=== PATIENT | female | born 1975 | race Hispanic/Latino ===

== ENCOUNTER 2021-01-20 12:26 | Emergency (ER) | payer OTHER, SELFPAY ==
[2021-01-20] VITALS (16 sets, daily range): BP systolic 109–138; BP diastolic 72–111; PULSE 80–112; RESP 18–35; TEMP 37.8; O2SAT 95–99
--- NOTE | ~2021-01-20 | XR_ITS ---
XR chest 1V portable DATE: 01/20/2021 13:20 INDICATION: Cough. TECHNIQUE: Portable AP chest on 01/20/2021 at 1322 hours COMPARISON: None FINDINGS: Normal heart size. No hilar or mediastinal enlargement. Minimal atelectasis at the lung bas es. The lungs otherwise appear clear. No pleural effusion or pulmonary vascular congestion or pneumot horax. Surgical clips, right upper quadrant, likely due to cholecystectomy. IMPRESSION: Minimal atelectasis at the lung bases Probable cholecystectomy Reviewed, dictated and finalized at location A.
[2021-01-20 12:42] LABS: Basophils Percent Auto 0.2 % (0.2-1.2); Hematocrit 41.8 % (37.0-47.0); Hemoglobin 14.3 g/dL (12.0-15.0); Immature Granulocyte Absolute 0.03 K/mm3 (0.00-0.031); Immature Granulocyte Percent A 0.5 % (0-0.5); Lymphocytes Absolute Auto 0.71 K/mm3 (0.9-3.2); Lymphocytes Percent Auto 12.5 % (18.3-44.2); Mean Corpuscular HGB Conc 34.2 g/dl (32-36); Mean Corpuscular Volume 93.5 fl (80-100); Mean Platelet Volume 9.1 fl (7.4-10.4); Monocytes Absolute Auto 0.5 K/mm3 (0.1-0.6); Monocytes Percent Auto 9.5 % (2.6-8.5); Neutrophils Absolute Auto 4.4 K/mm3 (1.3-6.7); Neutrophils Percent Auto 77.3 % (45.5-73.1); Platelet Count Result 207 k/mm3 (150-375); Red Blood Count 4.47 M/mm3 (4.2-5.4); Red Cell Distribution Width 12.6 % (11.5-14.5); White Blood Count 5.7 K/mm3 (4.5-10.0)
[2021-01-20 12:54] LABS: Alanine Aminotransferase 16 U/L (4-35); Albumin Level 4.3 g/dL (3.5-5.1); Alkaline Phosphatase 61 U/L (38-126); Anion Gap 9 mmol/L (8-16); Aspartate Amino Transferase 45 U/L (14-36); Bilirubin,Total 0.4 mg/dL (0.2-1.3); Blood Urea Nitrogen 8 mg/dL (7-17); Calcium 9.5 mg/dL (8.4-10.2); Carbon Dioxide 29 mmol/L (22-30); Chloride 101 mmol/L (98-107); Estimated CRCL calculation 69 ml/min; Estimated Glomerular Filt Rate > 60; Glucose 124 mg/dL (65-105); Lipase 125 U/L (23-300); Potassium 3.6 mmol/L (3.4-5.0); Sodium 139 mmol/L (137-145)
--- NOTE | 2021-01-20 12:55 | ECG_ITS ---
Measurements Intervals [place] Rate: 115 P: 32 HI: 154 QRS: 17 QRSD: 81 T: 30 QT: 333 QTc: 462 Interpretive Statements SINUS TACHYCARDIA INCOMPLETE RIGHT BUNDLE BRANCH BLOCK BORDERLINE ST-T WAVE ABNORMALITY- INF/LAT LEADS ABNORMAL ECG Electronically Signed On 01-20-2021 13:31:32 CDT by iBju Miles D.O.
[2021-01-20] MEDS: ONDANSETRON INJ 4 MG/2 ML VIAL IV PUSH (13:18)
[2021-01-20] MEDS: SODIUM CHLORIDE 0.9% IV 1,000 ML 999 ML IV CONT (13:18)
--- NOTE | 2021-01-20 13:43 | ED.GENADULT ---
HPI - General Adult General Chief complaint: Nausea/Vomiting/Diarrhea Stated complaint: N/V/D, COVID + 01/16 History of Present Illness HPI narrative: Patient is a 45-year-old female who presents ER with symptoms from COVID-19. Began feeling ill on 01/16/2021. She was tested on 01/17 and was positive for COVID-19. She has been having some runny nose and some cough. No shortness of breath. She has been having nausea and vomiting with diarrhea which has been the most severe parts of her symptoms. She has no medications to alleviate the symptoms again. She does have a spouse who is also ill with COVID-19. Related Data Allergies Allergy/AdvReac Type Severity Reaction Status Date / Time No Known Allergies Allergy Verified 01/20/21 12:29 Review of Systems Review of Systems: All systems reviewed & are unremarkable except as noted in HPI and below Constitutional: Constitutional: Denies chills, Reports fever(s) and Denies weakness ENT: Reports nasal congestion and Denies sore throat Cardiovascular: Cardiovascular: Denies chest pain and Denies radiating jaw, neck or arm pain Respiratory: Respiratory: Reports cough, Denies dyspnea and Denies wheezing Gastrointestinal: Gastrointestinal: Denies abdominal pain, Reports diarrhea, Reports nausea and Reports vomiting PMFSH Past Medical History Medical History (Updated 01/20/21 @ 15:26 by Manuel Linares MD) Healthy female adult Surgical History Surgical History (Updated 01/20/21 @ 13:54 by Manuel Linares MD) History of appendectomy History of cholecystectomy Social History Social History (Updated 01/20/21 @ 13:54 by Manuel Linraes MD) Smoking status: Never smoker Exam Narrative: Exam Narrative: GENERAL: Well-appearing, well-nourished, and in no acute distress. HEAD: Normocephalic, atraumatic. CHEST: Clear to auscultation. No respiratory distress. Frequent coughing. HEART: Regular rate and rhythm. Normal peripheral pulses. ABDOMEN: Soft, nontender, nondistended. EXTREMITIES: Normal range of motion. No edema. SKIN: Warm, dry, no rash. NEURO: Alert and oriented x3. PSYCH: Normal mood and affect. Course Course Emergency Course: Feels improved. Informed results. Discharge home. Vital Signs Vital signs: Vital Signs Temperature 100.0 F H 01/20/21 12:26 Pulse Rate 98 01/20/21 12:26 Respiratory Rate 22 H 01/20/21 12:26 Blood Pressure 131/88 01/20/21 12:26 Pulse Oximetry 95 01/20/21 12:26 Temperature 100.0 F H 01/20/21 12:26 Pulse Rate 104 H 01/20/21 14:16 Respiratory Rate 18 01/20/21 14:16 Blood Pressure 120/76 01/20/21 14:16 Pulse Oximetry 95 01/20/21 12:26 Medical Decision Making Vital Signs Vital Signs: Vital Signs Temperature 100.0 F H 01/20/21 12:26 Pulse Rate 98 01/20/21 12:26 Respiratory Rate 22 H 01/20/21 12:26 Blood Pressure 131/88 01/20/21 12:26 Pulse Oximetry 95 01/20/21 12:26 Temperature 100.0 F H 01/20/21 12:26 Pulse Rate 104 H 01/20/21 14:16 Respiratory Rate 18 01/20/21 14:16 Blood Pressure 120/76 01/20/21 14:16 Pulse Oximetry 95 01/20/21 12:26 Lab Data Result diagrams: 01/20/21 12:33 01/20/21 12:33 Labs: Lab Results 01/20/21 01/20/21 01/20/21 Range/Units 12:33 12:33 14:32 WBC 5.7 (4.5-10.0) K/mm3 RBC 4.47 (4.2-5.4) M/mm3 Hgb 14.3 (12.0-15.0) g/dL Hct 41.8 (37.0-47.0) % MCV 93.5 (80-100) fl MCH 32.0 (26-34) pg MCHC 34.2 (32-36) g/dl RDW 12.6 (11.5-14.5) % Plt Count 207 (150-375) k/mm3 MPV 9.1 (7.4-10.4) fl Immature Gran % (Auto) 0.5 (0-0.5) % Neut % (Auto) 77.3 H (45.5-73.1) % Lymph % (Auto) 12.5 L (18.3-44.2) % Oliver % (Auto) 9.5 H (2.6-8.5) % Eos % (Auto) 0.0 (0-4.4) % Baso % (Auto) 0.2 (0.2-1.2) % Lymph # (Auto) 0.71 L (0.9-3.2) K/mm3 Oliver # (Auto) 0.5 (0.1-0.6) K/mm3 Eos # (Auto) 0.0 (0-0.3) K/mm3 Baso # (Auto) 0.0
[2021-01-20 14:46] LABS: Add Urine Microscopic? YES; Appearance Urine Cloudy (Clear); Bacteria Urine Trace /hpf; Bilirubin Urine Negative (Negative); Blood Urine 3+ (Negative); Color Urine Yellow (Yellow); Glucose Urine UA Negative (Negative); Ketones Urine Trace mg/dL (Negative); Leukocyte Esterase Ur Negative LEU/UL (Negative); Mucus Urine Rare /lpf; Nitrate Urine Negative (Negative); Protein Urine 1+ mg/dL (Negative); RBC Urine >75 /hpf (0-2); Specific Grav Ur 1.017 (1.001-1.035); Squamous Epithelial Cell Urine Few /hpf (Few); Urobilinogen Urine Negative mg/dL (<2.0)
== END 2021-01-20 15:47 | disposition home or self-care (01) ==
PROVIDERS: Emergency Provider Emergency Medicine; PCP Family Medicine
DX: U07.1 COVID-19 (principal); R19.7 Diarrhea, unspecified
CPT/HCPCS: 36415; 71045; 80053; 81001; 81025; 83690; 85025; 87086; 93005; 96361; 96374; 99284; J2405; J7030

== ENCOUNTER 2021-01-25 21:08 | Inpatient (IN) | payer OTHER, SELFPAY ==
[2021-01-25] VITALS (11 sets, daily range): BP systolic 123–127; BP diastolic 75–81; PULSE 70–87; RESP 28–36; TEMP 37.1–37.5; O2SAT 97–100
--- NOTE | ~2021-01-25 | XR_ITS ---
EXAMINATION: XR chest 1V portable EXAM DATE: 01/31/2021 05:57 INDICATION: COVID . Shortness of breath. TECHNIQUE: Portable AP frontal chest x-ray was obtained. Comparison is made to prior examination from 01/26/2021. FINDINGS: Moderate amount of bilateral airspace disease involving all lobes. Compared to previous exa mination, there've been some small patchy regions of more confluent consolidation replacing the groun dglass opacity. Left midlung zone granuloma. No pneumothorax or pleural effusion. Cardiomediastinal s ilhouette is normal. There are no osseous abnormalities identified. There are cholecystectomy clips. IMPRESSION: Diffuse airspace disease consistent with COVID pneumonia. Reviewed, dictated and finalized at location A.
--- NOTE | ~2021-01-25 | XR_ITS ---
EXAMINATION: XR chest 1V portable INDICATION: Hypoxia, COVID positive TECHNIQUE: Portable AP chest at 2147 hours COMPARISON: 01/20/2021 FINDINGS: Patchy opacities have developed throughout all lung zones. There is no pleural effusion or pneumothorax. The cardiomediastinal silhouette is normal. The visualized osseous structures are unrem arkable. IMPRESSION: 1. Patchy opacities throughout all lung zones, consistent with COVID 19 pneumonia. Reviewed, dictated and finalized at location A. IMPRESSION: 1. Patchy opacities throughout all lung zones, consistent with COVID 19 pneumon ia.
--- NOTE | ~2021-01-25 | XR_ITS ---
EXAMINATION: XR chest 1V portable DATE: 01/26/2021 08:54 INDICATION: Shortness of breath. COVID-19 pneumonia. TECHNIQUE: A single frontal view of the chest was obtained. COMPARISON: Chest single view 01/25/2021, 01/20/2021 FINDINGS: The patient is rotated to her left. There are heterogeneous airspace opacities in all lung zones bilaterally. No pleural effusion or pneumothorax. The heart size is normal. Surgical clips in t he right upper quadrant are likely from cholecystectomy. IMPRESSION: 1. Stable diffuse lung disease, consistent with COVID-19 pneumonia. Reviewed, dictated and finalized at location A.
--- NOTE | ~2021-01-25 | CT_ITS ---
EXAMINATION: CTA chest PE protocol DATE: 01/26/2021 10:56 INDICATION: Hypoxia. TECHNIQUE: Computed tomography angiography (CTA) of the chest was performed with 100 mL Omnipaque-350 intravenous contrast timed to evaluate the pulmonary arteries. Coronal maximum intensity projection 3D-reconstructions were created by the technologist. Automated exposure control and iterative reconst ruction technique were employed. The dose-length product was 240.09 mGy-cm. COMPARISON: Chest single view 01/26/2021 FINDINGS: There are areas of groundglass opacity and crazy paving involving all lobes. There are airs pace opacities in the lower lobes and posterior aspects of the upper lobes. There is a trace left ple ural effusion. The heart size is normal. No pericardial effusion. There is no pulmonary embolus. Ther e are changes of cholecystectomy. There is mild thoracic spondylosis. IMPRESSION: 1. No pulmonary embolus. Sensitivity is mildly decreased by motion artifact. 2. Diffuse lung disease, consistent with COVID-19 pneumonia. Reviewed, dictated and finalized at location A.
--- NOTE | 2021-01-25 21:16 | ECG_ITS ---
Measurements Intervals [place] Rate: 84 P: 12 [place]: 144 QRS: 17 QRSD: 79 T: 0 QT: 377 QTc: 447 Interpretive Statements SINUS RHYTHM BORDERLINE T WAVE ABNORMALITY- INFERIOR LEADS BASELINE ARTIFACT- I, II, III, AVR, AVL, AVF, V1, V3-V6 BORDERLINE ECG Electronically Signed On 01-26-2021 7:13:55 CDT by Biju Miles D.O.
[2021-01-25 21:29] LABS: Alveolar/Arterial O2 Gradient 505.8 mmHg; Base Excess ABG 1.3 mEq/l (+/-2.0); Carboxyhemoglobin 0.2 % THb (0-2.0); Fractional Inspired Oxygen 90 %; Methemoglobin ABG 0.3 %THb (0-1.5); Oxygen Content ABG 17.3 %vol (16.0-22.0); Oxygen Saturation ABG 97.8 % (95.0-100.0); Oxyhemoglobin 96.5 % THb (90.0-100.0); PCO2 ABG 36.6 mmHg (35.0-45.0); PO2 ABG 98.4 mmHg (80.0-100.0); PO2 FiO2 Ratio Arterial Blood 1.09 %; Total Hemoglobin 12.7 g/dL (12.0-18.0); pH ABG 7.453 (7.350-7.450)
[2021-01-25 21:29] LABS: Basophils Percent Auto 0.2 % (0.2-1.2); Hematocrit 38.6 % (37.0-47.0); Hemoglobin 12.9 g/dL (12.0-15.0); Immature Granulocyte Absolute 0.08 K/mm3 (0.00-0.031); Immature Granulocyte Percent A 0.9 % (0-0.5); Lymphocytes Absolute Auto 0.69 K/mm3 (0.9-3.2); Lymphocytes Percent Auto 7.5 % (18.3-44.2); Mean Corpuscular HGB Conc 33.4 g/dl (32-36); Mean Corpuscular Hemoglobin 31.5 pg (26-34); Mean Corpuscular Volume 94.1 fl (80-100); Mean Platelet Volume 9.1 fl (7.4-10.4); Monocytes Absolute Auto 0.4 K/mm3 (0.1-0.6); Monocytes Percent Auto 4.3 % (2.6-8.5); Neutrophils Percent Auto 87.1 % (45.5-73.1); Platelet Count Result 432 k/mm3 (150-375); Red Cell Distribution Width 12.8 % (11.5-14.5); White Blood Count 9.2 K/mm3 (4.5-10.0)
[2021-01-25 21:30] LABS: Device NON-REBREATHER MASK; Modified Allen's Test Pass; Site Drawn LEFT RADIAL
[2021-01-25 21:40] LABS: INR 0.9; Prothrombin Time 12.2 Seconds (11.1-14.7)
[2021-01-25 21:41] LABS: Lactic Acid Reflex 1.9 mmol/L (0.7-2.1); Partial Thromboplastin Time 28.1 SECONDS (22.3-36.8)
[2021-01-25 21:44] LABS: Alanine Aminotransferase 30 U/L (4-35); Albumin Level 3.7 g/dL (3.5-5.1); Alkaline Phosphatase 98 U/L (38-126); Anion Gap 6 mmol/L (8-16); Aspartate Amino Transferase 66 U/L (14-36); Bilirubin,Total 0.4 mg/dL (0.2-1.3); Blood Urea Nitrogen 19 mg/dL (7-17); CRP 7.8 mg/dL (<1.0); Calcium 8.4 mg/dL (8.4-10.2); Carbon Dioxide 30 mmol/L (22-30); Chloride 106 mmol/L (98-107); Estimated CRCL calculation 98 ml/min; Estimated Glomerular Filt Rate > 60; Glucose 132 mg/dL (65-105); Potassium 3.6 mmol/L (3.4-5.0); Sodium 142 mmol/L (137-145)
[2021-01-25] MEDS: DEXAMETHASONE SOD PHOS INJ 4 MG/ML VIAL 6 MG IV PUSH (22:12)
--- NOTE | 2021-01-25 22:31 | ED.SOB ---
HPI - SOB/Dyspnea General Chief Complaint: Shortness of Breath/Dyspnea Stated Complaint: SOB Time Seen by Provider: 01/25/21 21:37 History of Present Illness HPI Narrative: Patient is a 45-year-old female who presents ER with shortness of breath. [place] symptomatic with Covid on 01/16/2021 and tested positive a day later. She was seen in the ER last week with negative chest x-ray and no hypoxia. She has been at home and then became very short of breath yesterday. Persisted throughout the day and she decided to come to the ER. She continues to have fevers and chills. She has fatigue and exertional shortness of breath. Patient was found to be 66% on room air and is now on 5 L of nasal cannula oxygen. She is having no chest pain or chest pressure. Reports she feels like she can only get 1/2 breath and then starts to cough. Related Data Home Medications Medication Instructions Recorded Confirmed albuterol sulfate INHALATION 01/26/21 benzonatate mg PO 01/26/21 ondansetron 01/26/21 Allergies Allergy/AdvReac Type Severity Reaction Status Date / Time No Known Allergies Allergy Verified 01/25/21 21:17 Review of Systems Review of Systems: All systems reviewed & are unremarkable except as noted in HPI and below Constitutional: Constitutional: Reports chills, Reports fever(s) and Reports weakness ENT: Denies nasal congestion and Denies sore throat Cardiovascular: Cardiovascular: Denies chest pain, Denies rapid heart rate and Denies radiating jaw, neck or arm pain Respiratory: Respiratory: Reports cough, Reports dyspnea and Denies wheezing Gastrointestinal: Gastrointestinal: Denies abdominal pain, Denies nausea and Denies vomiting [facility], [facility] Past Medical History Medical History (Updated 01/26/21 @ 05:18 by Manuel Linares MD) Healthy female adult Surgical History Surgical History History of appendectomy History of cholecystectomy Family History Family History (Updated 01/26/21 @ 04:46 by Fabiana Funes DO) Father Lung cancer Continuous tobacco abuse Mother Diabetes mellitus Hypertension Social History Social History Smoking status: Never smoker Alcohol intake: current Drinks per week: 1 Substance use: never Substance use type: does not use Gender identity (if verbalized by the patient): Female Spiritual care concerns: No Exam Narrative: Exam Narrative: GENERAL: Fatigued-appearing, well-nourished, and in no acute distress. HEAD: Normocephalic, atraumatic. Neck: Trachea midline CHEST: Clear to auscultation. Tachypnea, no stridor.. HEART: Regular rate and rhythm. Normal peripheral pulses. EXTREMITIES: Normal range of motion. No edema. SKIN: Warm, dry, no rash. NEURO: No focal deficits. Alert and oriented x3. PSYCH: Normal mood and affect. Course Course Emergency Course: Admit to hospitalist service for significant oxygen requirement related to Covid pneumonia. Patient will be started on remdesivir. Patient is also received Decadron. Vital Signs Vital signs: Vital Signs Temperature 99.5 F 01/25/21 21:12 Pulse Rate 83 01/25/21 21:12 Respiratory Rate 32 H 01/25/21 21:12 Blood Pressure 127/75 01/25/21 21:12 Pulse Oximetry 97 01/25/21 21:12 Temperature 98.1 F 01/26/21 00:10 Pulse Rate 79 01/26/21 00:10 Respiratory Rate 22 H 01/26/21 00:10 Blood Pressure 120/64 01/26/21 00:10 Pulse Oximetry 90 01/26/21 00:10 MDM - SOB/Dyspnea Lab Data Result diagrams: 01/25/21 21:19 01/25/21 23:39 Labs: Lab Results 01/25/21 01/25/21 01/25/21 Range/Units 21:19 21:19 21:19 WBC 9.2 (4.5-10.0) K/mm3 RBC 4.10 L (4.2-5.4) M/mm3 Hgb 12.9 (12.0-15.0) g/dL Hct 38.6 (37.0-47.0) % MCV 94.1 (80-100) fl MCH 31.5 (26-34) pg MCHC 33.4 (32-36) g/dl RDW 12.8 (11.5-14.5)
[2021-01-26] VITALS (21 sets, daily range): BP systolic 108–122; BP diastolic 64–75; PULSE 57–79; RESP 16–32; TEMP 36.1–36.8; O2SAT 80–100; BMI 24.0
[2021-01-26 00:01] LABS: Alanine Aminotransferase 28 U/L (4-35); Estimated CRCL calculation 115 ml/min; Estimated Glomerular Filt Rate > 60
[2021-01-26] MEDS: REMDESIVIR 200 MG/NS 250 ML 200 MG/250 ML BAG 250 MG IVPB (00:27)
--- NOTE | 2021-01-26 02:55 | PM.IMHP ---
H&P: HPI History of Present Illness Date/Time: 01/26/21 02:55 Chief Complaint: Shortness of breath Narrative: 45-year-old female previously healthy except for recent diagnosis of COVID-19 who presented to the ER via EMS with shortness of breath and hypoxia.The patient reported that she developed rhinorrhea and cough on the . She was tested the next day when she developed chills and was found to be positive for COVID-19. On 01/20/2021 she presented to our ER due to weakness, nausea, vomiting and diarrhea. She had a chest x-ray at that time that was normal. She reported that her GI symptoms lasted for 2 or 3 days then resolved. Then on the morning of the she began feeling short of breath. Then today she reported that if she exerted herself at all she became lightheaded and had to collapse into a chair. On EMS arrival the patient's home the patient was found to be satting 66% on room air. She arrived to the ER on 5 L nasal cannula satting 96%. The patient reports that she feels as if she cannot get a deep breath. She denies any chest pain, palpitations, lower extremity swelling, or orthopnea. She reports that she currently feels hot and sweaty. She has noticed decreased sense of smell over the last couple of days. She denies loss of sense of taste. She works at the [employer]. She reports that her has also been ill with COVID symptoms. The patient received prescriptions for albuterol and benzoate from her primary care provider these medications did not seem to improve her symptoms. She received Zofran from the ER but has not had to use it in several days. She has been afebrile since arrival. Initially in the ER the patient was on 5 L nasal cannula. Evidently before she left the ER she was requiring up to 10 L nasal cannula and a non-rebreather. After arriving to the medical floor the patient is having persistent hypoxia with sats in the mid 80s. She briefly had be placed on 15 L high-flow and a non-rebreather. After 20 or 30 minutes the patient was weaned back down to 7 L high-flow. The patient reports that she feels much better currently. Review of Systems Review of Systems: Narrative: 12 systems were reviewed with pertinent positives and negatives per HPI. Except as documented in the HPI, all other systems were reviewed and are negative. [facility] Past Medical History Medical History (Updated 01/26/21 @ 05:03 by Fabiana Funes DO) Healthy female adult Surgical History Surgical History History of appendectomy History of cholecystectomy Family History Family History (Updated 01/26/21 @ 04:46 by Fabiana Funes DO) Father Lung cancer Continuous tobacco abuse Mother Diabetes mellitus Hypertension Social History Social History Smoking status: Never smoker Alcohol intake: current Drinks per week: 1 Substance use: never Substance use type: does not use Gender identity (if verbalized by the patient): Female Spiritual care concerns: No Comments She lives with her of 14 years. They do not have any children. She [place] the [place] from [place] [facility] 5 years ago. She works at [employer]. She drinks 1 beer a week on average. She is a lifelong nonsmoker and does not use illicit substances. Meds Home Medications and Allergies Home Medications Medication Instructions Recorded Confirmed Type albuterol sulfate INHALATION 01/26/21 History benzonatate mg PO 01/26/21 History ondansetron 01/26/21 History Allergies Allergy/AdvReac Type Severity Reaction Status Date / Time No Known Allergies Allergy Verified 01/25/21 21:17 Vital Signs Vital Signs - 24 hr 01/25/21 21:12 01/25/21 21:18 01/25/21 21:30 Temperature 99.5 F Pulse Rate 83 84 79 Respiratory Rate 32 H 28 H 29 H Blood Pressure 127/75 Pulse
[2021-01-26 06:14] LABS: Alanine Aminotransferase 25 U/L (4-35); Albumin Level 3.5 g/dL (3.5-5.1); Alkaline Phosphatase 89 U/L (38-126); Anion Gap 5 mmol/L (8-16); Aspartate Amino Transferase 49 U/L (14-36); Bilirubin,Total 0.4 mg/dL (0.2-1.3); Blood Urea Nitrogen 20 mg/dL (7-17); CRP 6.5 mg/dL (<1.0); Calcium 8.6 mg/dL (8.4-10.2); Carbon Dioxide 31 mmol/L (22-30); Chloride 107 mmol/L (98-107); Estimated CRCL calculation 80 ml/min; Estimated Glomerular Filt Rate > 60; Glucose 171 mg/dL (65-105); Lactate Dehydrogenase 991 U/L (313-618); Potassium 3.6 mmol/L (3.4-5.0); Sodium 143 mmol/L (137-145)
[2021-01-26 06:18] LABS: Hematocrit 35.6 % (37.0-47.0); Mean Corpuscular HGB Conc 33.7 g/dl (32-36); Mean Corpuscular Hemoglobin 31.6 pg (26-34); Mean Corpuscular Volume 93.7 fl (80-100); Mean Platelet Volume 9.1 fl (7.4-10.4); Platelet Count Result 439 k/mm3 (150-375); Red Cell Distribution Width 12.7 % (11.5-14.5); White Blood Count 6.5 K/mm3 (4.5-10.0)
[2021-01-26 07:02] LABS: Vitamin D 25 Hydroxy 23.6 ng/mL
--- NOTE | 2021-01-26 07:56 | ADMGEN ---
This patient, Aishwarya Banks, was admitted to 3 [facility] Surg Room 331-01. Patient/family oriented to hospital policies and general routines including ID bracelet, bed and alarms, visiting hours, pain management, procedures, bathroom and other care routines, personal items, smoking policy, room service/diet, and visiting hours. Information on how to activate the Rapid Response Team has been discussed. Patient/Family are encouraged to report perceived risks to care and to ask questions if they do not understand what they are told or what they should do. Patient had respiratory distress when she arrived with rapid breathing and SpO2 in the 80's until a nonrebreather was placed per RT recommendation. She continued to desat during times of activity though she maintained an SpO2 of 96% on 5 lpm while sleeping. 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
[2021-01-26] MEDS: ALBUTEROL SULFATE (*SP) INHALER 4 PUFF INHALATION ×4 (08:00→20:05)
[2021-01-26] MEDS: ENOXAPARIN 40 MG/0.4 ML SYRINGE SUB-Q ×2 (08:09→20:18)
[2021-01-26] MEDS: DEXAMETHASONE SOD PHOS INJ 4 MG/ML VIAL 6 MG IV PUSH (08:09)
--- NOTE | 2021-01-26 08:39 | PM.IMPN ---
Progress Note: A&P Assessment and Plan (1) Acute respiratory failure with hypoxia: Code(s): J96.01 - Acute respiratory failure with hypoxia Status: Acute (2) Pneumonia due to COVID-19 virus: Code(s): U07.1 - COVID-19; J12.82 - Pneumonia due to coronavirus disease 2019 Status: Acute (3) COVID-19: Code(s): U07.1 - COVID-19 Status: Acute (4) Elevated d-dimer: Code(s): R79.89 - Other specified abnormal findings of blood chemistry Status: Acute Additional Plan # Acute hypoxic respiratory failrue: due to covid pneumonia. oxygen supplementation. currently at 15 l. titrate as needed. may need BIPAP.albuterol inhaler prn. elevated d dimer. check CTA chest. # COVID 19 pneumonia: check procalcitonin level. if elevated, may put some antibitocs. started on decadron and remdesivir # DVT proph: lovenox 40 mg q12hrs. transfer pateint to IMU. still signififcantely hypoxic, start airvo. if not maintained will place on BIPAP Subjective Date/time seen: 01/26/21 08:39 Interval history: she coughed this am and she started desaturating, she is up to 15l. she has ongoing cough. no fever, no chills. she denies any chest pain. Review of Systems Review of Systems: Narrative: - CONSTITUTIONAL: Denies weight loss, reports fever and chills. - HEENT: Denies changes in vision and hearing - RESPIRATORY: reports SOB and cough. - CV: Denies palpitations and CP. - GI: Denies abdominal pain, nausea, vomiting and diarrhea. - : Denies dysuria and urinary frequency. - MSK: Denies myalgia and joint pain. - SKIN: Denies rash and pruritus. - NEUROLOGICAL: Denies headache and syncope. - PSYCHIATRIC: Denies recent changes in mood. Denies anxiety and depression. All systems reviewed & are unremarkable except as noted in HPI and below Constitutional: Constitutional: Reports fatigue and Reports weakness Neurologic: Reports weakness Endocrine: Endocrine: Reports fatigue Exam Narrative: Exam Narrative: General: Moderately ill-appearing, well-developed well-nourished HEENT: Mucous membranes are dry, no oral pharyngeal erythema, pupils are equal and reactive, eye glasses in place, high-flow nasal cannula in nares Respiratory: Crackles at the bases bilaterally, tachypneic, no accessory muscle use Cardiovascular: Regular rate, regular rhythm, no murmurs, 2+ bilateral radial pedal pulses Gastrointestinal: Soft, nontender, nondistended, positive bowel sounds Skin: No jaundice, no pallor Musculoskeletal: No clubbing, cyanosis or edema Neurological: Alert and oriented, speech is clear, no facial asymmetry, no gross motor deficits noted on limited exam Psychiatric: Appropriate mood and affect, pleasant and cooperative : Deferred Hematologic/lymphatic: No petechiae, bruising or significant lymphadenopathy Objective Data Vital Signs Vital Signs: Vital Signs - 24 hr 01/25/21 21:12 01/25/21 21:18 01/25/21 21:30 Temperature 99.5 F Pulse Rate 83 84 79 Respiratory Rate 32 H 28 H 29 H Blood Pressure 127/75 Pulse Oximetry 97 01/25/21 21:45 01/25/21 22:00 01/25/21 22:15 Temperature Pulse Rate 78 85 84 Respiratory Rate 28 H 36 H 32 H Blood Pressure Pulse Oximetry 01/25/21 22:35 01/25/21 23:23 01/25/21 23:34 Temperature 98.8 F Pulse Rate 76 87 70 Respiratory Rate 32 H 30 H Blood Pressure 124/75 Pulse Oximetry 98 100 01/25/21 23:45 01/25/21 23:46 01/26/21 00:00 Temperature Pulse Rate 77 79 72 Respiratory Rate 35 H 35 H Blood Pressure 123/81 Pulse Oximetry 01/26/21 00:10 01/26/21 04:00 01/26/21 08:00 Temperature 98.1 F 98 F Pulse Rate 79 78 70 Respiratory Rate 22 H 20 18 Blood Pressure 120/64 114/67 115/72 Pulse Oximetry 90 95 96 01/26/21 08:05 01/26/21 08:07 01/26/21 08:12 Temperature Pulse Rate Respiratory Rate Blood Pressure Pulse Oximetry 85 L 86 L 94 01/26/21 08:19 Temperature Pulse Rate Respiratory Rate
[2021-01-26 08:51] LABS: Alveolar/Arterial O2 Gradient 599.3 mmHg; Carboxyhemoglobin 0.3 % THb (0-2.0); Device HIGH FLOW NASAL CANN; Fractional Inspired Oxygen 100 %; HCO3 ABG 26.1 mEq/l (22.0-26.0); Methemoglobin ABG 0.3 %THb (0-1.5); Modified Allen's Test Pass; Oxygen Content ABG 19.7 %vol (16.0-22.0); Oxygen Saturation ABG 95.5 % (95.0-100.0); Oxyhemoglobin 93.8 % THb (90.0-100.0); PCO2 ABG 39.2 mmHg (35.0-45.0); PO2 ABG 74.5 mmHg (80.0-100.0); PO2 FiO2 Ratio Arterial Blood 0.75 %; Reduced Hemoglobin 5.6 %THb (0-5.0); Site Drawn RIGHT RADIAL; Total Hemoglobin 14.9 g/dL (12.0-18.0); pH ABG 7.441 (7.350-7.450)
--- NOTE | 2021-01-26 10:36 | PC.NURSE ---
Patient to cat scan per bed. Report called to IMU nurse Danelle. Patient to be transported to room 212 after cat scan.
[2021-01-26] MEDS: guaiFENesin/DEXTROMETHORPHAN 10 ML UDC PO ×2 (12:03→22:23)
--- NOTE | 2021-01-26 12:11 | PC.NURSE ---
This patient, Aishwarya Banks, was received from [ [phone]] on 01/26/21 at 1105. Recvd report from Tashia. Patient/family oriented to unit policies and routines
--- NOTE | 2021-01-26 16:03 | PM.CNPUL ---
Assessment and Plan Assessment and plan (1) Pneumonia due to COVID-19 virus: Code(s): U07.1 - COVID-19; J12.82 - Pneumonia due to coronavirus disease 2019 Status: Acute Assessment and Plan: Patient with COVID pneumonia and hypoxemic respiratory failure requiring 13 L high-flow nasal cannula at this time. Patient was started on dexamethasone 6 mg IV Q day on 01/25 at 10:00 p.m. and Remdesivir 200 on 01/26 at 12:27 a.m. I am in agreement with this treatment and will continue at a minimum of 5 days. will reassess the patient at D5 to see if she would benefit from an additional 5 days. I have discussed convalescent plasma with the patient and she has agreed with this recommendation. I have ordered the convalescent plasma. I have initiated ceftriaxone and azithromycin for possible community-acquired pneumonia and will follow blood cultures and deescalate if cultures remain negative. I have recommended that patient perform prone positioning if possible. If patient has additional desaturations on high-flow nasal cannula would proceed to high-flow air bow treatment with 60 L and up to 100%. If this does not keep her saturations above 90% recommend BiPAP. Patient was previously healthy without any comorbidities and I am hoping the above treatments will prevent further deterioration. Should the patient deteriorate she does wish to be a full code. Will follow with you. (2) Acute respiratory failure with hypoxia: Code(s): J96.01 - Acute respiratory failure with hypoxia Status: Acute Assessment and Plan: Patient with acute respiratory failure with hypoxemia from COVID pneumonia. She has a CT angiogram of the chest which is negative for pulmonary embolism. As above she is treated for community-acquired pneumonia. I have been ordered an echocardiogram to assess LV function and valve function. 01/25 arrival on 5 L with sats 96% 01/25 in ED 21:00 on 100% NRB 7.45/37/98 01/25 21:00 5 L NC 01/26 08:00 15 L high flow NC 7.44/39/75 01/26 16:00 13 L high flow NC. Sats 92% History of Present Illness History of Present Illness Consult date: 01/26/21 Reason for consult: hypoxemia Chief complaint: covid pneumonia, hypoxia Narrative: this is a new consult for COVID pneumonia with hypoxemic respiratory failure. This is a 45-year-old Female with no known past medical history and not taking any medications. Patient had no respiratory limitations in her life and walks at least 4 miles a day at work and jogs with intermittent walking 2 miles in 30 minutes. Patient developed rhinorrhea, cough and chills and tested positive for COVID on 331 at a [employer]. I do not have those results. She then developed weakness, nausea, vomiting and diarrhea and presented to the ER on 01/20. Chest x-ray at that time demonstrated minimal atelectasis at the bases but was otherwise normal. On 01/24 patient developed worsening shortness of breath and on for 8 EMS was called and her sats were 66% on room air. Patient was brought to the emergency department and initially required 10 L nasal cannula oxygen. Patient had a white blood cell count of 9.2K and an ABG on 15 L nasal cannula oxygen demonstrated a pH of 7.45/37/98. Patient was Admitted to the floor and started on room de severe and dexamethasone. On the floor patient had desaturations and required 15 L high-flow nasal cannula and 100% non-rebreather and was transferred to IMU. patient had a D-dimer of 0.70 which was positive and had a CT angiogram of the chest that showed no pulmonary emboli but diffuse bilateral ground-glass opacities consistent with COVID pneumonia. In the IMU patient was weaned to 15 L high flow with saturations 94%. I was consulted. 01/26 Patient tells me she feels better than she felt yesterday which was her worst day. Patient does still complain that she has some chest tightness and that deep breathing causes her to cough. She has no phlegm and denies h
[2021-01-26] MEDS: REMDESIVIR 100 MG/NS 250 ML 100 MG/250 ML BAG 250 MG IVPB (23:41)
[2021-01-27] VITALS (20 sets, daily range): BP systolic 104–127; BP diastolic 61–79; PULSE 50–77; RESP 18–28; TEMP 36.3–36.9; O2SAT 90–100
--- NOTE | 2021-01-27 | ECHO_ITS ---
Patient Info Name: Aishwarya Banks Age: 45 years : 1975 Gender: Female Ht: 62 in Wt: 131 lbs BSA: 1.62 m2 HR: 55 bpm BP: 115 / 79 mmHg Heart Rhythm: Sinus Rhythm Technical Quality: Good Exam Date: 01/27/2021 2:01 PM Exam Location: [facility] Pulmonary Exam Room: [facility] Patient Status: Inpatient Admit Date: 01/25/2021 Staff Ordering Physician: Franky Hammond MD Consumer Recruiter: Kayli Campos RDCS Attending Provider: Fabiana Funes DO Referring Physician: Manish DELA CRUZ; Exam Type: CA echo doppler color flow Study Info Indications - covid pneumonia hypoxia Complete two-dimensional, color flow and Doppler transthoracic echocardiogram is performed. Summary 1. Complete two-dimensional, color flow and Doppler transthoracic echocardiogram is performed. 2. Left ventricular systolic function is normal, estimated at 65-70%. 3. There is no increased left ventricular wall thickness. 4. The left ventricular diastolic function is normal. 5. Right atrial chamber dimension is mildly enlarged. 6. There is no aortic valve stenosis. 7. There is mild mitral valve regurgitation. 8. There is mild tricuspid valve regurgitation. 9. No pulmonary hypertension, estimated pulmonary arterial systolic pressure is 30 mmHg. Left Ventricle Left ventricular chamber dimension is normal. Left ventricular systolic function is normal, estimated at 65-70%. There is no increased left ventricular wall thickness. The left ventricular diastolic function is normal. Right Ventricle Right ventricular chamber dimension is normal. Right ventricular systolic function is normal. Left Atria Left atrial chamber dimension is normal. Right Atria Right atrial chamber dimension is mildly enlarged. Aortic Valve The aortic valve is not well visualized. There is no aortic valve stenosis. There is no aortic valve regurgitation. Pulmonic Valve The pulmonic valve is normal. There is mild pulmonic regurgitation. Mitral Valve The mitral valve has normal leaflets. There is mild mitral valve regurgitation. Tricuspid Valve The tricuspid valve leaflets are normal. There is mild tricuspid valve regurgitation. No pulmonary hypertension, estimated pulmonary arterial systolic pressure is 30 mmHg. Pericardium/Pleural The pericardium appears normal. There is no pericardial effusion. Inferior Vena Cava Normal inferior vena cava with >50% collapse upon inspiration consistent with normal right atrial pressure, 5 mmHg. Aorta The aortic root size at the sinus of Valsalva is normal. Left Ventricular Outflow Tract Name Value Normal LVOT 2D LVOT Diameter 2.0 cm LVOT Doppler LVOT Peak Velocity 92 cm/s LVOT Peak Gradient 3 mmHg LVOT Mean Gradient 2 mmHg LVOT VTI 22 cm LVOT VTI/AV VTI Ratio 0.8 LVOT Stroke Volume 71 ml LVOT CO 12.8 l/min LVOT CI 7.9 l/min/m2 Pulmonic Valv
[2021-01-27] MEDS: ONDANSETRON INJ 4 MG/2 ML VIAL IV PUSH (04:17)
[2021-01-27 05:19] LABS: Alanine Aminotransferase 19 U/L (4-35); Estimated CRCL calculation 114 ml/min; Estimated Glomerular Filt Rate > 60
[2021-01-27] MEDS: guaiFENesin/DEXTROMETHORPHAN 10 ML UDC PO ×2 (08:39→21:20)
[2021-01-27] MEDS: ACETAMINOPHEN 325 MG TABLET 650 MG PO (08:39)
[2021-01-27] MEDS: DEXAMETHASONE SOD PHOS INJ 4 MG/ML VIAL 6 MG IV PUSH (08:40)
[2021-01-27] MEDS: ENOXAPARIN 40 MG/0.4 ML SYRINGE SUB-Q ×2 (08:40→19:57)
[2021-01-27] MEDS: ALBUTEROL SULFATE (*SP) INHALER 4 PUFF INHALATION ×4 (08:40→19:56)
--- NOTE | 2021-01-27 12:06 | PM.IMPN ---
Progress Note: A&P Additional Plan # Acute hypoxic respiratory failrue: due to covid pneumonia. oxygen supplementation. currently at 15 l. titrate as needed. may need BIPAP.albuterol inhaler prn. elevated d dimer. CTA chest negative for PE. on empiric antiboics for bacterial pneuonia. appreiacte pulmnonary recs. # COVID 19 pneumonia: check procalcitonin level ordered but still not back yet. i am not sure why. if elevated, may put some antibitocs. however pulmoanry has placed on antibtioics. her sputum cutlure with mixed bacterial bea. cotninue antibioics. started on decadron and remdesivir.r eceived convalescent plasma as well. # DVT proph: lovenox 40 mg q12hrs. contineu current care. Subjective Date/time seen: 01/27/21 12:06 Interval history: feeling a little better today.s he recieved convalescent plasma yesterday. she is able to eat, less nauseous. no fever, chills. Review of Systems Review of Systems: All systems reviewed & are unremarkable except as noted in HPI and below Constitutional: Constitutional: Reports fatigue and Reports weakness Neurologic: Reports weakness Endocrine: Endocrine: Reports fatigue Exam Narrative: Exam Narrative: General: Moderately ill-appearing, well-developed well-nourished HEENT: Mucous membranes are dry, no oral pharyngeal erythema, pupils are equal and reactive, eye glasses in place, high-flow nasal cannula in nares Respiratory: Crackles at the bases bilaterally, tachypneic, no accessory muscle use Cardiovascular: Regular rate, regular rhythm, no murmurs, 2+ bilateral radial pedal pulses Gastrointestinal: Soft, nontender, nondistended, positive bowel sounds Skin: No jaundice, no pallor Musculoskeletal: No clubbing, cyanosis or edema Neurological: Alert and oriented, speech is clear, no facial asymmetry, no gross motor deficits noted on limited exam Psychiatric: Appropriate mood and affect, pleasant and cooperative : Deferred Hematologic/lymphatic: No petechiae, bruising or significant lymphadenopathy Objective Data Vital Signs Vital Signs: Vital Signs - 24 hr 01/26/21 14:00 01/26/21 16:00 01/26/21 16:30 Temperature 97.2 F L Pulse Rate 58 L 61 58 L Respiratory Rate 24 H Blood Pressure 121/72 Pulse Oximetry 98 01/26/21 18:00 01/26/21 20:00 01/26/21 21:19 Temperature 96.9 F L 98.2 F Pulse Rate 67 67 69 Respiratory Rate 16 24 H Blood Pressure 114/64 108/70 Pulse Oximetry 98 99 01/26/21 21:40 01/26/21 21:44 01/26/21 22:00 Temperature 97.4 F L Pulse Rate 60 64 Respiratory Rate 28 H Blood Pressure 115/75 Pulse Oximetry 98 99 01/26/21 22:44 01/26/21 23:35 01/27/21 00:00 Temperature 97.6 F 98 F 98 F Pulse Rate 57 L 73 53 L Respiratory Rate 18 24 H 24 H Blood Pressure 117/70 122/70 122/70 Pulse Oximetry 97 99 100 01/27/21 00:55 01/27/21 02:00 01/27/21 03:16 Temperature Pulse Rate 54 L Respiratory Rate Blood Pressure Pulse Oximetry 100 99 01/27/21 03:32 01/27/21 04:00 01/27/21 04:01 Temperature 97.5 F L Pulse Rate 77 69 Respiratory Rate 20 Blood Pressure 115/79 Pulse Oximetry 98 90 01/27/21 05:25 01/27/21 05:56 01/27/21 08:00 Temperature 97.4 F L Pulse Rate 55 L 58 L Respiratory Rate 26 H Blood Pressure 110/63 Pulse Oximetry 100 97 01/27/21 08:21 01/27/21 09:57 01/27/21 11:54 Temperature Pulse Rate 54 L Respiratory Rate Blood Pressure Pulse Oximetry 96 96 Intake/Output Intake/Output: Intake & Output 01/24/21 01/25/21 01/26/21 01/27/21 23:59 23:59 23:59 23:59 Intake Total 2269 712 Output Total 700 325 Balance 1569 387 Meds/Results Medications: Active Medications Generic Name Dose Route Start Last Admin Trade Name Freq PRN Reason Stop Dose Admin Acetaminophen 650 mg 01/25/21 23:20 01/27/21 08:39 Acetaminophen 325 Mg Tablet PO 650 mg Q4H PRN Administration Mild Pain (1-3) or Fever Albuterol 4 puff 01/26/21 08:00 01/27
[2021-01-27] MEDS: REMDESIVIR 100 MG/NS 250 ML 100 MG/250 ML BAG 250 MG IVPB (21:15)
--- NOTE | 2021-01-27 22:00 | PM.PNPUL ---
Progress Note: A&P Assessment and Plan (1) Pneumonia due to COVID-19 virus: Code(s): U07.1 - COVID-19; J12.82 - Pneumonia due to coronavirus disease 2019 Status: Acute Assessment and Plan: Patient with COVID pneumonia and hypoxemic respiratory failure now decreased at 8 L/min Still taking a while to recover after exertion continues on dexamethasone 6 mg IV Q day since 01/25 at 10:00 p.m. and Remdesivir 200 on 01/26 at 12:27 a.m. continue a minimum of 5 days; will reassess the patient at D5 to see if she would benefit from an additional 5 days. convalescent plasma with the patient and she has agreed with this recommendation. ceftriaxone and azithromycin for possible community-acquired pneumonia I have recommended that patient perform prone positioning if possible. If patient has additional desaturations on high-flow nasal cannula would proceed to high-flow air vo treatment with 60 L and up to 100%. If this does not keep her saturations above 90% recommend BiPAP. Patient was previously healthy without any comorbidities; she is a full code; Will follow with you. (2) Acute respiratory failure with hypoxia: Code(s): J96.01 - Acute respiratory failure with hypoxia Status: Acute Assessment and Plan: Patient with acute respiratory failure with hypoxemia from COVID pneumonia. She has a CT angiogram of the chest which is negative for pulmonary embolism. As above she is treated for community-acquired pneumonia. I have been ordered an echocardiogram to assess LV function and valve function. 01/25 arrival on 5 L with sats 96% 01/25 in ED 21:00 on 100% NRB 7.45/37/98 01/25 21:00 5 L NC 01/26 08:00 15 L high flow NC 7.44/39/75 01/26 16:00 13 L high flow NC. Sats 92% 01/27 21:00 8 L/min saturation 90% Subjective Date/time seen: 01/27/21 21:30 This is a 45-year-old female female with no known past medical history is seen in f/u for COVID , received convalescent plasma 01/26/2021. Her O2 need is lower, 8 L/min down from 15 L/min high flow & 15 nonbreather. She is coughing with no significant sputum. January 17- positive for COVID at a [facility]. --> weakness, nausea, vomiting and diarrhea ER on 01/20. Chest x-ray at that time demonstrated minimal atelectasis at the bases but was otherwise normal. 01/24 more shortness of breath; 01/25 EMS was called, sats were 66% on room air. This was her worst day. Required 10 L nasal cannula oxygen. WBC 9.2K; ABG on 15 L nasal cannula oxygen = pH of 7.45/37/98. Admitted to the floor and started on Remdesivir and dexamethasone. Desaturations and required 15 L high-flow nasal cannula and 100% non-rebreather and was transferred to IMU. D-dimer 0.70 which was positive and had a CT angiogram of the chest that showed no pulmonary emboli; diffuse bilateral ground-glass opacities consistent with COVID pneumonia. In the IMU patient was weaned to 15 L high flow with saturations 94%, now improved after convalescent plasma yesterday Still has chest tightness with discomfort taking a deep breath. no sputum, no hemoptysis; no chest pain, abdominal pain, joint pain, headache or new rashes. Review of Systems Review of Systems: All systems reviewed & are unremarkable except as noted in HPI and below Eyes: Eyes: Reports no additional eye complaints ENT: Reports system reviewed and no additional complaints, except as documented Cardiovascular: Cardiovascular: Reports no additional cardiovascular complaints, Reports dyspnea and Reports dyspnea on exertion Respiratory: Respiratory: Reports no additional respiratory complaints, Denies change in phlegm color, Reports cough, Denies hemoptysis, Denies excessive phlegm production, Reports pain on inspiration, Reports pain with cough, Reports dyspnea, Reports dyspnea on exertion and Denies wheezing Gastrointestinal: Gastrointestinal: Reports no additional gastrointest
[2021-01-28] VITALS (14 sets, daily range): BP systolic 106–151; BP diastolic 63–79; PULSE 43–73; RESP 16–20; TEMP 36.5–36.7; O2SAT 92–99
[2021-01-28 05:06] LABS: Alanine Aminotransferase 14 U/L (4-35); Estimated CRCL calculation 94 ml/min; Estimated Glomerular Filt Rate > 60
[2021-01-28] MEDS: guaiFENesin/DEXTROMETHORPHAN 10 ML UDC PO ×2 (08:51→15:40)
[2021-01-28] MEDS: ENOXAPARIN 40 MG/0.4 ML SYRINGE SUB-Q ×2 (08:51→20:13)
[2021-01-28] MEDS: DEXAMETHASONE SOD PHOS INJ 4 MG/ML VIAL 6 MG IV PUSH (08:51)
[2021-01-28] MEDS: ALBUTEROL SULFATE (*SP) INHALER 4 PUFF INHALATION ×4 (08:52→20:15)
--- NOTE | 2021-01-28 09:55 | PM.IMPN ---
Progress Note: A&P Additional Plan # Acute hypoxic respiratory failrue: due to covid pneumonia. oxygen supplementation. currently at 15 l. titrate as needed. may need BIPAP.albuterol inhaler prn. elevated d dimer. CTA chest negative for PE. on empiric antiboics for bacterial pneuonia. appreiacte pulmnonary recs. # COVID 19 pneumonia: check procalcitonin level ordered but still not back yet. i am not sure why. if elevated, may put some antibitocs. however pulmoanry has placed on antibtioics. her sputum cutlure with mixed bacterial bea. cotninue antibioics. started on decadron and remdesivir.r eceived convalescent plasma as well. # DVT proph: lovenox 40 mg q12hrs. contineu current care. down grade to med sug with tele Subjective Date/time seen: 01/28/21 09:56 Interval history: no overnight events, feels better, she is less nausous. cough is improving. she is down on her oxygen to 4 l this am. Review of Systems Review of Systems: All systems reviewed & are unremarkable except as noted in HPI and below Exam Narrative: Exam Narrative: General: Moderately ill-appearing, well-developed well-nourished HEENT: Mucous membranes are dry, no oral pharyngeal erythema, pupils are equal and reactive, eye glasses in place, high-flow nasal cannula in nares Respiratory: coarse breath sounds, no accessory muscle use Cardiovascular: Regular rate, regular rhythm, no murmurs, 2+ bilateral radial pedal pulses Gastrointestinal: Soft, nontender, nondistended, positive bowel sounds Skin: No jaundice, no pallor Musculoskeletal: No clubbing, cyanosis or edema Neurological: Alert and oriented, speech is clear, no facial asymmetry, no gross motor deficits noted on limited exam Psychiatric: Appropriate mood and affect, pleasant and cooperative : Deferred Hematologic/lymphatic: No petechiae, bruising or significant lymphadenopathy Objective Data Vital Signs Vital Signs: Vital Signs - 24 hr 01/27/21 09:57 01/27/21 11:54 01/27/21 12:00 Temperature 97.6 F Pulse Rate 54 L 60 Respiratory Rate 28 H Blood Pressure 108/61 Pulse Oximetry 96 99 01/27/21 13:18 01/27/21 16:00 01/27/21 18:00 Temperature 98.4 F Pulse Rate 68 72 54 L Respiratory Rate 20 Blood Pressure 104/62 Pulse Oximetry 97 01/27/21 20:00 01/27/21 21:56 01/27/21 23:33 Temperature 97.7 F 97.5 F L Pulse Rate 66 50 L 63 Respiratory Rate 20 18 Blood Pressure 127/77 125/75 Pulse Oximetry 90 95 01/28/21 00:00 01/28/21 01:41 01/28/21 04:00 Temperature 97.7 F Pulse Rate 43 L 44 L 55 L Respiratory Rate 18 20 Blood Pressure 120/74 Pulse Oximetry 95 97 01/28/21 06:00 01/28/21 08:00 Temperature 98.1 F Pulse Rate 43 L 54 L Respiratory Rate 16 Blood Pressure 138/71 Pulse Oximetry 99 96 Intake/Output Intake/Output: Intake & Output 01/25/21 01/26/21 01/27/21 01/28/21 23:59 23:59 23:59 23:59 Intake Total 2269 2542 Output Total 700 1875 0 Balance 1569 667 0 Meds/Results Medications: Active Medications Generic Name Dose Route Start Last Admin Trade Name Freq PRN Reason Stop Dose Admin Acetaminophen 650 mg 01/25/21 23:20 01/27/21 08:39 Acetaminophen 325 Mg Tablet PO 650 mg Q4H PRN Administration Mild Pain (1-3) or Fever Albuterol 4 puff 01/26/21 08:00 01/28/21 08:52 Albuterol Sulfate (*Sp) Inhaler INHALATION 4 puff QIDRT SUNI Administration Benzonatate 100 mg 01/26/21 08:45 Benzonatate 100 Mg Capsule PO QID PRN Cough Dexamethasone Sodium Phosphate 6 mg 01/26/21 09:00 01/28/21 08:51 Dexamethasone Sod Phos Inj 4 Mg/Ml Vial IV PUSH 02/04/21 09:01 6 mg DAILY SUNI Administration Enoxaparin Sodium 40 mg 01/26/21 09:00 01/28/21 08:51 Enoxaparin 40 Mg/0.4 Ml Syringe SUB-Q 40 mg Q12HR SUNI Administration Guaifenesin/Dextromethorphan 10 ml 01/26/21 04:49 01/28/21 08:51 Guaifenesin/Dextromethorphan 10 Ml Udc PO 10 ml Q4H PRN Administration Cough R
--- NOTE | 2021-01-28 14:52 | PM.PNPUL ---
Progress Note: A&P Assessment and Plan (1) Pneumonia due to COVID-19 virus: Code(s): U07.1 - COVID-19; J12.82 - Pneumonia due to coronavirus disease 2018 Status: Acute Assessment and Plan: Patient with COVID pneumonia and hypoxemic respiratory failure now decreased at 2-3 L/min Still taking a while to recover after exertion continues on dexamethasone 6 mg IV Q day since 01/25 and Remdesivir 01/26 continue a minimum of 5 days; convalescent plasma; ceftriaxone and azithromycin for possible community-acquired pneumonia I have recommended that patient perform prone positioning if possible. Will follow with you. (2) Acute respiratory failure with hypoxia: Code(s): J96.01 - Acute respiratory failure with hypoxia Status: Acute Assessment and Plan: Patient with acute respiratory failure with hypoxemia from COVID pneumonia. CTA negative for pulmonary embolism. 01/25 arrival on 5 L with sats 96% 01/25 in ED 21:00 on 100% NRB 7.45/37/98 01/25 21:00 5 L NC 01/26 08:00 15 L high flow NC 7.44/39/75 01/26 16:00 13 L high flow NC. Sats 92% 01/27 21:00 8 L/min saturation 90% 01/28 2-3 L/min Subjective Date/time seen: 01/28/21 14:52 Aishwarya Banks is a 45 year old female with COVID-19 and associated pneumonia with hypoxemic respiratory failure who is feeling much better. Her oxygen requirements have decreased, from 8 L/min yesterday to 2-3 L/min. She is coughing less. She is still short of breath and desaturates with exertion. Nonproductive cough. Review of Systems Review of Systems: All systems reviewed & are unremarkable except as noted in HPI and below Eyes: Eyes: Reports no additional eye complaints ENT: Reports system reviewed and no additional complaints, except as documented Cardiovascular: Cardiovascular: Reports no additional cardiovascular complaints, Reports dyspnea and Reports dyspnea on exertion Respiratory: Respiratory: Reports no additional respiratory complaints, Denies change in phlegm color, Reports cough, Denies hemoptysis, Denies excessive phlegm production, Reports pain on inspiration, Reports pain with cough, Reports dyspnea, Reports dyspnea on exertion and Denies wheezing Gastrointestinal: Gastrointestinal: Reports no additional gastrointestinal complaints Musculoskeletal: Musculoskeletal: Reports no additional musculoskeletal complaints Integumentary/Breasts: Skin/Breast: Reports system reviewed and no additional complaints, except as docu Neurologic: Reports system reviewed and no additional complaints, except as documented Psychiatric: Psychiatric: Reports no additional psychiatric complaints Endocrine: Endocrine: Reports no additional endocrine complaints Allergic/Immunologic: Allergic/Immunologic: Denies wheezing Exam Const: General: cooperative and healthy appearing Orientation/consciousness: oriented to person, oriented to place and oriented to time HENMT: Head: normal to inspection Ears: hearing grossly normal bilaterally Mouth: Yes Normal oral and palatal mucosa present Throat: tonsils absent Eyes: General: appearance normal, both eyes and all related structures Neck: Neck: normal visual inspection Chest: Chest palpation & inspection: normal inspection of the chest Resp: Effort & Inspection: normal respiratory effort (takes shallow breaths, paroxysmal coughing) Auscultation: crackles (in bases), no rhonchi and no wheezes Cardio: Jugular venous distension: no JVD Rate: regular rate Rhythm: regular rhythm Heart sounds: S1 normal heart sound present, S2 normal heart sound present and no murmurs GI: Inspection: normal to inspection Skin: General skin exam: normal color Neuro: General: patient oriented x3 and moves all extremities Extrem: General: normal to inspection Psych: Appearance: grossly normal and well kempt
[2021-01-28] MEDS: ACETAMINOPHEN 325 MG TABLET 650 MG PO (15:41)
--- NOTE | 2021-01-28 17:23 | PC.NURSE ---
This patient, Aishwarya Banks, was received from IMU [facility] on 01/28/21 at 1723. Patient/family oriented to unit policies and routines. Report received from Jose M SOUZA
--- NOTE | 2021-01-28 17:30 | PC.NURSE ---
This patient, Aishwarya Banks, was transferred to [/s 325 ] on 01/28/21 at 1731. Personal belongings sent with patient. Report given to [merari lenz ]. Appropriate documentation sent with patient.
[2021-01-28] MEDS: REMDESIVIR 100 MG/NS 250 ML 100 MG/250 ML BAG 250 MG IVPB (20:13)
[2021-01-29] VITALS (10 sets, daily range): BP systolic 102–131; BP diastolic 51–74; PULSE 49–75; RESP 18–22; TEMP 36.4–37.2; O2SAT 90–98
[2021-01-29] MEDS: ONDANSETRON INJ 4 MG/2 ML VIAL IV PUSH (02:19)
[2021-01-29] MEDS: METOCLOPRAMIDE HCL INJ 10 MG/2 ML VIAL IV PUSH (05:57)
[2021-01-29 06:42] LABS: Alanine Aminotransferase 14 U/L (4-35); Estimated CRCL calculation 94 ml/min; Estimated Glomerular Filt Rate > 60
--- NOTE | 2021-01-29 08:08 | PC.NURSE ---
Patient vomited x3 through the night, the first time she was treated with Zofran and stated that she felt relief. The second time she said was resolved after emesis. Third time she received a one time dose of Reglan and stated that she felt relief. She had desaturations through the night with activity. Once while using a commode she desaturated down as low as 76%. Each time her O2 was turned up to 5 lpm, and she would recover while resting and her O2 was able to be turned down to 2 lpm at that time. She showed signs of severe weakness and tachypnea with activity though it resolved (along with her low SpO2) with approximately 15 minutes of rest.
[2021-01-29] MEDS: DEXAMETHASONE SOD PHOS INJ 4 MG/ML VIAL 6 MG IV PUSH (08:40)
[2021-01-29] MEDS: ENOXAPARIN 40 MG/0.4 ML SYRINGE SUB-Q ×2 (08:40→21:13)
[2021-01-29] MEDS: ALBUTEROL SULFATE (*SP) INHALER 4 PUFF INHALATION ×4 (08:41→21:13)
--- NOTE | 2021-01-29 10:50 | PM.IMPN ---
Progress Note: A&P Additional Plan # Acute hypoxic respiratory failrue: due to covid pneumonia. oxygen supplementation. currently at 15 l. titrate as needed. may need BIPAP.albuterol inhaler prn. elevated d dimer. CTA chest negative for PE. on empiric antiboics for bacterial pneuonia. appreiacte pulmnonary recs. # COVID 19 pneumonia: check procalcitonin level ordered but still not back yet. i am not sure why. if elevated, may put some antibitocs. however pulmoanry has placed on antibtioics. her sputum cutlure with mixed bacterial bea. cotninue antibioics. started on decadron and remdesivir. received convalescent plasma as well. # DVT proph: lovenox 40 mg q12hrs. will order PT/OT Subjective Date/time seen: 01/29/21 10:50 Interval history: no overnight events, oxygen was down to 2l yesteday, which is remarkable. was up to 3l this am, felt a little nasueous this am, overall feelign better compared to when she came in .no other symptoms. Review of Systems Review of Systems: All systems reviewed & are unremarkable except as noted in HPI and below Constitutional: Constitutional: Reports fatigue and Reports weakness Neurologic: Reports weakness Endocrine: Endocrine: Reports fatigue Exam Narrative: Exam Narrative: General: Moderately ill-appearing, well-developed well-nourished HEENT: Mucous membranes are dry, no oral pharyngeal erythema, pupils are equal and reactive, eye glasses in place, high-flow nasal cannula in nares Respiratory: coarse breath sounds, no accessory muscle use Cardiovascular: Regular rate, regular rhythm, no murmurs, 2+ bilateral radial pedal pulses Gastrointestinal: Soft, nontender, nondistended, positive bowel sounds Skin: No jaundice, no pallor Musculoskeletal: No clubbing, cyanosis or edema Neurological: Alert and oriented, speech is clear, no facial asymmetry, no gross motor deficits noted on limited exam Psychiatric: Appropriate mood and affect, pleasant and cooperative : Deferred Hematologic/lymphatic: No petechiae, bruising or significant lymphadenopathy Objective Data Vital Signs Vital Signs: Vital Signs - 24 hr 01/28/21 12:00 01/28/21 13:22 01/28/21 13:50 Temperature 98 F Pulse Rate 64 58 L Respiratory Rate 18 Blood Pressure 119/79 Pulse Oximetry 98 95 01/28/21 16:00 01/28/21 17:23 01/28/21 20:00 Temperature 97.9 F 97.7 F Pulse Rate 73 72 50 L Respiratory Rate 20 20 Blood Pressure 106/63 151/77 H Pulse Oximetry 96 92 01/28/21 20:57 01/29/21 00:00 01/29/21 04:00 Temperature 97.7 F 97.9 F Pulse Rate 49 L 49 L Respiratory Rate 22 H 18 Blood Pressure 128/66 131/74 Pulse Oximetry 93 90 96 01/29/21 08:00 01/29/21 08:49 01/29/21 09:39 Temperature 98.2 F Pulse Rate 54 L Respiratory Rate 22 H Blood Pressure 111/70 Pulse Oximetry 95 94 94 Intake/Output Intake/Output: Intake & Output 01/26/21 01/27/21 01/28/21 01/29/21 23:59 23:59 23:59 23:59 Intake Total 2269 2542 1320 440 Output Total 700 1875 400 Balance 1569 667 920 440 Meds/Results Medications: Active Medications Generic Name Dose Route Start Last Admin Trade Name Freq PRN Reason Stop Dose Admin Acetaminophen 650 mg 01/25/21 23:20 01/28/21 15:41 Acetaminophen 325 Mg Tablet PO 650 mg Q4H PRN Administration Mild Pain (1-3) or Fever Albuterol 4 puff 01/26/21 08:00 01/29/21 08:41 Albuterol Sulfate (*Sp) Inhaler INHALATION 4 puff QIDRT SUNI Administration Benzonatate 100 mg 01/26/21 08:45 Benzonatate 100 Mg Capsule PO QID PRN Cough Dexamethasone Sodium Phosphate 6 mg 01/26/21 09:00 01/29/21 08:40 Dexamethasone Sod Phos Inj 4 Mg/Ml Vial IV PUSH 02/04/21 09:01 6 mg DAILY SUNI Administration Enoxaparin Sodium 40 mg 01/26/21 09:00 01/29/21 08:40 Enoxaparin 40 Mg/0.4 Ml Syringe SUB-Q 40 mg Q12HR SUNI Administration Guaifenesin/Dextromethorphan 10 ml 01/26/21 04:49 01/28/21 15:40 Guaifenesin/Dextromethorp
--- NOTE | 2021-01-29 11:42 | PCNFU ---
Nutrition Follow-Up Complete: Inadequate Oral Intake as related to COVID/pneumonia as evidenced by poor po intake and weight loss reported. Goal: Meet estimated nutritional needs Patient is progressing towards goal. We will continue with current goal. Pt current nutrition is Regular. Last recorded weight is 59.7 kg, no new weight. Bowel Motility:+BM reported 01/27. Labs Reviewed:Cr 0.5 Meds Noted:Rocephin,Remdesivir,Lovenox,Zofran. Additional Notes: Patient is currently on COVID precautions. I tried calling patients room today, no answer. Spoke with PR INTERN, eating at least 75% of a regular diet. Plans for Chest xray today. She is also receiving ensure compact BID providing an additional 220 kcals and 9 gms protein. Agree with diet orders. Monitoring: Will monitor every 5 days.
--- NOTE | 2021-01-29 11:45 | PM.PNPUL ---
Progress Note: A&P Assessment and Plan (1) Pneumonia due to COVID-19 virus: Code(s): U07.1 - COVID-19; J12.82 - Pneumonia due to coronavirus disease 2018 Status: Acute Assessment and Plan: Patient with COVID pneumonia and hypoxemic respiratory failure now decreased at 8 L/min Still taking a while to recover after exertion continues on dexamethasone 6 mg IV Q day since 01/25 at 10:00 p.m. and Remdesivir 200 on 01/26 at 12:27 a.m. continue a minimum of 5 days; will reassess the patient at D5 to see if she would benefit from an additional 5 days. convalescent plasma with the patient and she has agreed with this recommendation. ceftriaxone and azithromycin for possible community-acquired pneumonia I have recommended that patient perform prone positioning if possible. If patient has additional desaturations on high-flow nasal cannula would proceed to high-flow air vo treatment with 60 L and up to 100%. If this does not keep her saturations above 90% recommend BiPAP. Patient was previously healthy without any comorbidities; she is a full code 01/29 Cultures negative will DC ceftriaxone and azithro. Oxygenation improving. Continue remdesivir and dexamethasone for total 10 days or can discontinue if she is on room air with ambulation. Obtian CXR prior to discharge. No need for pulmonary out patient specific follow up unless deemed necessary by her primary physician. Will sign off, please call with any questions. Will follow with you. (2) Acute respiratory failure with hypoxia: Code(s): J96.01 - Acute respiratory failure with hypoxia Status: Acute Assessment and Plan: Patient with acute respiratory failure with hypoxemia from COVID pneumonia. She has a CT angiogram of the chest which is negative for pulmonary embolism. As above she is treated for community-acquired pneumonia. I have been ordered an echocardiogram to assess LV function and valve function. 01/25 arrival on 5 L with sats 96% 01/25 in ED 21:00 on 100% NRB 7.45/37/98 01/25 21:00 5 L NC 01/26 08:00 15 L high flow NC 7.44/39/75 01/26 16:00 13 L high flow NC. Sats 92% 01/27 21:00 8 L/min saturation 90% 01/28 4L 94% 01/29 Contrinues to improve clinically, some DE PAZ remains, 3L NC sats 94%. Home O2 assessment prior to discharge. Subjective Date/time seen: 01/29/21 11:46 Interval history: This is a 45-year-old Female with no known past medical history and not taking any medications. Patient had no respiratory limitations in her life and walks at least 4 miles a day at work and jogs with intermittent walking 2 miles in 30 minutes. Patient developed rhinorrhea, cough and chills and tested positive for COVID on 331 at a [facility]'s. I do not have those results. She then developed weakness, nausea, vomiting and diarrhea and presented to the ER on 01/20. Chest x-ray at that time demonstrated minimal atelectasis at the bases but was otherwise normal. On 01/24 patient developed worsening shortness of breath and on for 8 EMS was called and her sats were 66% on room air. Patient was brought to the emergency department and initially required 10 L nasal cannula oxygen. Patient had a white blood cell count of 9.2K and an ABG on 15 L nasal cannula oxygen demonstrated a pH of 7.45/37/98. Patient was Admitted to the floor and started on room de severe and dexamethasone. On the floor patient had desaturations and required 15 L high-flow nasal cannula and 100% non-rebreather and was transferred to IMU. patient had a D-dimer of 0.70 which was positive and had a CT angiogram of the chest that showed no pulmonary emboli but diffuse bilateral ground-glass opacities consistent with COVID pneumonia. In the IMU patient was weaned to 15 L high flow with saturations 94%. I was consulted. 01/26 Patient tells me she feels better than she felt yesterday which was her worst day. Patient de paz
[2021-01-29] MEDS: REMDESIVIR 100 MG/NS 250 ML 100 MG/250 ML BAG 250 MG IVPB (21:12)
[2021-01-30] VITALS (13 sets, daily range): BP systolic 109–124; BP diastolic 60–76; PULSE 48–74; RESP 18–20; TEMP 36.2–36.7; O2SAT 85–96
[2021-01-30] MEDS: ALBUTEROL SULFATE (*SP) INHALER 4 PUFF INHALATION ×4 (08:55→21:58)
[2021-01-30] MEDS: DEXAMETHASONE SOD PHOS INJ 4 MG/ML VIAL 6 MG IV PUSH (08:55)
[2021-01-30] MEDS: ENOXAPARIN 40 MG/0.4 ML SYRINGE SUB-Q ×2 (08:55→21:57)
--- NOTE | 2021-01-30 15:01 | PM.IMPN ---
Progress Note: A&P Assessment and Plan (1) Acute respiratory failure with hypoxia: Code(s): J96.01 - Acute respiratory failure with hypoxia Status: Acute Assessment and Plan: Acute hypoxic respiratory failure due to COVID PNA. Was requiring oxygen supplementation at 15L. Treatment as outlined below. Appreciate pulmonary input. Home O2 evaluation. Repeat CXR in the morning. Continue PT/OT. (2) Pneumonia due to COVID-19 virus: Code(s): U07.1 - COVID-19; J12.82 - Pneumonia due to coronavirus disease 2018 Status: Acute Assessment and Plan: Patient with COVID 19 pneumonia. Condition slowly improving. Have been able to wean O2. Sputum culture negative. BCx and UCx negative as well. Remains on Decadron. Has completed Remdesivir. She did receive convalescent plasma as well on 01/26/21. Continue to wean O2 as tolerated. (3) COVID-19: Code(s): U07.1 - COVID-19 Status: Acute Assessment and Plan: As above. (4) Elevated d-dimer: Code(s): R79.89 - Other specified abnormal findings of blood chemistry Status: Acute Assessment and Plan: Related to COVID. CTA chest negative for PE. Doubt DVT. (5) DVT prophylaxis: Code(s): Z29.9 - Encounter for prophylactic measures, unspecified Status: Acute Assessment and Plan: Lovenox Subjective Date/time seen: 01/30/21 15:01 Interval history: 45yo healthy female here for COVID PNA. Assuming care. Chart reviewed. She feels better. Less SOB. Eating better. No diarrhea now. Exam Narrative: Exam Narrative: AF 98.1 110/68 74 18 96% ra Gen - NARD sitting up in chair Chest - very distant BS, nml RR CV - RRR S1/S2; Tele showing no significant dyrhythmias. Abd - soft NT/ND, +BS Ext - no pedal edema, negative Homans Skin - warm and dry Psych - nml mood and affect Objective Data Vital Signs Vital Signs: Vital Signs - 24 hr 01/29/21 16:00 01/29/21 20:00 01/29/21 23:56 Temperature 98.6 F 97.5 F L 98.9 F Pulse Rate 50 L 51 L 71 Respiratory Rate 20 20 20 Blood Pressure 113/68 102/51 L 112/63 Pulse Oximetry 97 98 96 01/30/21 00:00 01/30/21 03:45 01/30/21 03:50 Temperature Pulse Rate 65 Respiratory Rate Blood Pressure Pulse Oximetry 85 L 92 01/30/21 04:00 01/30/21 08:00 01/30/21 09:02 Temperature 97.7 F 97.4 F L Pulse Rate 55 L 48 L Respiratory Rate 18 18 Blood Pressure 124/76 122/69 Pulse Oximetry 96 96 94 01/30/21 10:20 01/30/21 11:14 01/30/21 12:00 Temperature 98.1 F Pulse Rate 74 Respiratory Rate 18 Blood Pressure 110/68 Pulse Oximetry 94 96 95 01/30/21 12:34 Temperature Pulse Rate Respiratory Rate Blood Pressure Pulse Oximetry 96 Intake/Output Intake/Output: Intake & Output 01/27/21 01/28/21 01/29/21 01/30/21 23:59 23:59 23:59 23:59 Intake Total 2542 1570 1470 560 Output Total 1875 400 690 900 Balance 667 1170 780 -340 Meds/Results Medications: Active Medications Generic Name Dose Route Start Last Admin Trade Name Freq PRN Reason Stop Dose Admin Acetaminophen 650 mg 01/25/21 23:20 01/28/21 15:41 Acetaminophen 325 Mg Tablet PO 650 mg Q4H PRN Administration Mild Pain (1-3) or Fever Albuterol 4 puff 01/26/21 08:00 01/30/21 12:30 Albuterol Sulfate (*Sp) Inhaler INHALATION 4 puff QIDRT SUNI Administration Benzonatate 100 mg 01/26/21 08:45 Benzonatate 100 Mg Capsule PO QID PRN Cough Dexamethasone Sodium Phosphate 6 mg 01/26/21 09:00 01/30/21 08:55 Dexamethasone Sod Phos Inj 4 Mg/Ml Vial IV PUSH 02/04/21 09:01 6 mg DAILY SUNI Administration Enoxaparin Sodium 40 mg 01/26/21 09:00 01/30/21 08:55 Enoxaparin 40 Mg/0.4 Ml Syringe SUB-Q 40 mg Q12HR SUNI Administration Guaifenesin/Dextromethorphan 10 ml 01/26/21 04:49 01/28/21 15:40 Guaifenesin/Dextromethorphan 10 Ml Udc PO 10 ml Q4H PRN Administration Cough
[2021-01-30] MEDS: BENZONATATE 100 MG CAPSULE PO (21:57)
[2021-01-30] MEDS: guaiFENesin/DEXTROMETHORPHAN 10 ML UDC PO (21:57)
[2021-01-31] VITALS (8 sets, daily range): BP systolic 103–117; BP diastolic 52–64; PULSE 61–90; RESP 16–20; TEMP 36.2–36.9; O2SAT 90–96
[2021-01-31] MEDS: ALBUTEROL SULFATE (*SP) INHALER 4 PUFF INHALATION ×2 (08:18→13:39)
[2021-01-31] MEDS: ENOXAPARIN 40 MG/0.4 ML SYRINGE SUB-Q (08:18)
[2021-01-31] MEDS: DEXAMETHASONE SOD PHOS INJ 4 MG/ML VIAL 6 MG IV PUSH (08:18)
[2021-01-31] MEDS: CHOLECALCIFEROL 1,000 UNITS TABLET 1000 UNITS PO (08:18)
--- NOTE | 2021-01-31 11:22 | HOMEO2EVAL ---
Evaluation was performed at [facility] Home Oxygen Evaluation RC: Home Oxygen (O2) Evaluation Start: 01/30/21 20:03 Freq: ONCE Status: Active Protocol: RPE Activity Type Activity Date Activity User E-Sign Co-Sign Detail Recorded Client Recorded Date Recorded By Document 01/31/21 11:05 KMV [id number] 01/31/21 11:18 KMV Document 01/31/21 11:05 KMV [id number] 01/31/21 11:18 KMV Document 01/31/21 11:10 KMV [id number] 01/31/21 11:18 KMV 01/31/21 01/31/21 01/31/21 11:05 11:05 11:10 Home O2 Evaluation Test Phase Resting Exercise Resting Oxygen Delivery Room Air Room Air Room Air Pulse Oximetry (90-100 %) 93 90 91 Pulse Rate (60-100 beats/min) 88 89 90 Activity Tolerance Good Good Ambulation Distance (feet) 75 Treatment Charges O2 Evaluation - Inpatient
--- NOTE | 2021-01-31 15:18 | PM.DS ---
DS: Admitting Diagnosis Admitting Diagnosis Admitting Diagnosis: Rhinorrhea, SOB and cough; known COVID positive on 01/17/21 DS: Discharge Diagnosis Discharge Diagnosis (1) Acute respiratory failure with hypoxia: Code(s): J96.01 - Acute respiratory failure with hypoxia Status: Acute Assessment and Plan: Acute hypoxic respiratory failure present on admission due to COVID PNA. CXR showing patchy opacities throughout all lung zones. On presentation, she had increased O2 requirement with needing 15L HFNC. CTA chest showing diffuse lung disease but no pulmonary embolus. Treatment for COVID as outlined below. Pulmonary consult obtained and appreciated their input. Condition slowly improved. We have been able to wean O2. Home O2 evaluation today showing patient does not require O2. Repeat CXR this morning per pulmonary request again shows diffuse airspace disease consistent with COVID pneumonia. Patietn feels much better and is eager for discharge. (2) Pneumonia due to COVID-19 virus: Code(s): U07.1 - COVID-19; J12.82 - Pneumonia due to coronavirus disease 2018 Status: Acute Assessment and Plan: Patient diagnosed with COVID-19 pneumonia on 01/17/21. Had significant acute hypoxic respiratory failure. Sputum culture negative. BCx and UCx negative as well. She was started on Decadron. She completed a course of Remdesivir. She did receive convalescent plasma as well on 01/26/21. (3) COVID-19: Code(s): U07.1 - COVID-19 Status: Acute Assessment and Plan: As above. (4) Elevated d-dimer: Code(s): R79.89 - Other specified abnormal findings of blood chemistry Status: Acute Assessment and Plan: Related to COVID. CTA chest negative for PE. DS: Summary Hospital Course Reason for hospitalization: 45yo female here for cough and SOB. She has known COVID-19 diagnosed on 01/17/21. Please see H&P for details. Hospital Course: Please see above for details of hospital course. Status at Discharge Cognitive/behavioral status at discharge: Stable Time Spent with Patient Time attestation: Total time spent providing and/or coordinating discharge services: 35 minutes Time spent: Greater than 30 minutes Exam Narrative: Exam Narrative: AF 97.6 117/62 61 18 93% ra Gen - NARD sitting up in chair Chest -distant breath sounds with few scattered rhonchi. CV - RRR S1/S2 Abd - soft NT/ND, +BS Ext - no pedal edema Skin - warm and dry Psych - nml mood and affect Discharge Plan Discharge Attending physician on discharge: Jerzy Moser Consulting providers: Franky Hammond Discharging Clinician: Jerzy Moser Anticipated Discharge Date/Time: 01/31/21 15:29 Patient Disposition: Home, Self-Care Activity: as tolerated Diet: regular Discharge Instructions: Please avoid large gathering, wear face coverings in public and practice social distance. Contact your doctor or come to the Emergency Room if you have increasing shortness of breath or other worrisome symptoms. Avoid NSAIDs (ibuprofen, naproxen, Aleve). Tylenol is safe to take. Follow-up with your doctor in 1-2 weeks. Please call for appointment. Please contact your doctor about when you will be eligible for the COVID vaccine. Please see the COVID instruction sheets for details. Recommend isolation for 20 days from your diagnosis. Patient Instructions: Antibiotic Form, Prevent Infections (GEN), How To Wash Your Hands (GEN), Droplet Precautions (GEN), Complications of Infection (GEN), COVID-19 (Coronavirus Disease 2019) (GEN), COVID-19 and Chronic Health Conditions (GEN), COVID-19: Slow the Coronavirus Spread (GEN), Face Coverings (Masks) and COVID-19 (GEN) Stand Alone Forms: General Discharge Information Follow-up/Referrals: Violeta,MD Ania [Primary Care Provider] - Follow Up with Primary Dr Discharge Medications: New dexamethasone [Damonro
== END 2021-01-31 16:10 | disposition home or self-care (01) | DRG 177 ==
LOC: ANHED 22:37 → ANH3MEDSUR 01-26 09:13 → ANHIMU 01-28 13:30 → ANH3MEDSUR 01-29 21:01 → ANHIMU 02-02 10:48
PROVIDERS: Emergency Medicine; Internal Medicine; Admitting Provider Internal Medicine; Emergency Provider Emergency Medicine; PCP Family Medicine; Visit Provider Internal Medicine
DX: U07.1 COVID-19 (principal); J12.82 Pneumonia due to coronavirus disease 2019; J96.01 Acute respiratory failure with hypoxia; R79.89 Other specified abnormal findings of blood chemistry; Z79.899 Other long term (current) drug therapy
CPT/HCPCS: 36415; 36430; 36600; 71045; 71275; 80053; 82306; 82375; 82565; 82728; 82805; 83050; 83605; 83615; 84145; 84460; 85025; 85027; 85380; 85610; 85730; 86140; 86900; 86901; 87040; 87070; 87205; 93005; 93306; 94618; 94640; 96374; 97110; 97116; 97161; 97165; 97530; 99285; A9270; J0456; J0696; J1100; J1650; J2405; J2765; P9059; Q9967

== ENCOUNTER 2021-02-07 17:21 | Inpatient (IN) | payer OTHER, SELFPAY ==
[2021-02-07] VITALS (19 sets, daily range): BP systolic 116–149; BP diastolic 70–96; PULSE 110–133; RESP 14–41; TEMP 36.6–36.9; O2SAT 93–96; BMI 25.0
--- NOTE | ~2021-02-07 | CT_ITS ---
EXAMINATION: CTA chest PE protocol DATE: 02/07/2021 18:56 CDT INDICATION: Post Covid dyspnea TECHNIQUE: Computed tomographic angiography (CTA) of the chest was performed with 100 mL Omnipaque-35 0 intravenous contrast. The dose-length product was 192.77 mGy-cm. Maximum intensity projection 3D-re constructions of the aorta and other arteries were constructed by the technologist on a separate work station. Automated exposure control and iterative reconstruction technique were employed. COMPARISON: CT dated 01/26/2021. FINDINGS: The study is technically adequate without evidence for pulmonary embolism. No evidence for aortic aneurysm or dissection. No significant pleural or pericardial effusion. No tho racic lymphadenopathy. There is been significant improvement of patchy bilateral airspace disease, co nsistent with resolving pneumonia. There is dependent consolidation in the lower lobes, likely superi mposed atelectasis. No endobronchial lesions. The upper abdomen is unremarkable. There are cholecyste ctomy changes. IMPRESSION: 1. No evidence for pulmonary embolism. 2: Significant improvement of patchy bilateral airspace consolidation, consistent with resolving pneu monia with probable superimposed dependent atelectasis. Reviewed, dictated and finalized at location A. IMPRESSION: 1. No evidence for pulmonary embolism. 2: Significant improvement of patchy bilateral airspace consolidation, consiste nt with resolving pneumonia with probable superimposed dependent atelectasis.
--- NOTE | ~2021-02-07 | US_ITS ---
EXAMINATION:US venous doppler LE RT INDICATION:Calf pain TECHNIQUE: Multiple grayscale, color flow and Doppler images of the right lower extremity deep venous systems were obtained and reviewed. COMPARISON:No prior studies for comparison. FINDINGS: The common femoral, superficial femoral and popliteal veins demonstrate normal respiratory variation, augmentation and compressibility. Color flow is also seen within the posterior tibial, pe roneal, greater saphenous and profunda veins. IMPRESSION: 1: No lower extremity deep venous thrombosis. Reviewed, dictated and finalized at location A.
--- NOTE | ~2021-02-07 | XR_ITS ---
XR chest 1V 02/07/2021 18:16 Indication: Heart palpitations. Pneumonia. Shortness of breath. Procedure: PA and lateral views of the chest Comparison: 01/31/2021 Findings: There is patchy bilateral airspace disease which has improved since prior examination, cons istent with resolving pneumonia. Impression: 1: Improving patchy bilateral airspace disease, consistent with resolving pneumonia. Reviewed, dictated and finalized at location A. Impression: 1: Improving patchy bilateral airspace disease, consistent with resolving pneum onia.
--- NOTE | 2021-02-07 17:33 | ECG_ITS ---
Measurements Intervals [employer] Rate: 127 P: 36 TN: 154 QRS: 9 QRSD: 71 T: 31 QT: 295 QTc: 429 Interpretive Statements SINUS TACHYCARDIA BORDERLINE ST-T WAVE ABNORMALITY- HIGH LATERAL LEADS BASELINE ARTIFACT- I, II, III, AVR, AVL, AVF, V4-V6 ABNORMAL ECG Electronically Signed On 02-07-2021 18:26:29 CDT by Biju Miles D.O.
--- NOTE | 2021-02-07 17:45 | ED.GENADULT ---
HPI - General Adult General Chief complaint: Arrhythmia/Palpitations Stated complaint: covid in 3-30/pneumonia Time Seen by Provider: 02/07/21 17:31 Source: RN notes reviewed History of Present Illness HPI narrative: Patient presents to emergency department from home for shortness of breath. Patient states she was diagnosed with COVID-19 on January 16. States she was admitted to [facility] following that and discharged approximately a week ago. Patient states she is been more short of breath over the past day as well as noticing that her heart is been racing. She also noted that she has had pain in her right calf and called her PCP today recommend she come to the emergency department to rule out a blood clot. Patient has been using her albuterol inhaler at home states she has not currently on any steroids. She denies any fevers or chills chest pain abdominal pain nausea vomiting or any other symptoms Related Data Home Medications Medication Instructions Recorded Confirmed benzonatate 100 mg PO QID PRN 01/26/21 01/26/21 ondansetron 4 mg BYMOUTH Q6-12H PRN 01/26/21 01/26/21 Allergies Allergy/AdvReac Type Severity Reaction Status Date / Time No Known Allergies Allergy Verified 02/07/21 18:56 Review of Systems Review of Systems: Narrative: Gen.: Denies fevers or chills Eyes: Denies eye pain or visual change ENT: Denies congestion Respiratory: See HPI CV: Denies chest pain reports feeling of heart racing GI: Denies abdominal pain nausea, emesis or diarrhea Musculoskeletal: Denies back pain or muscle pain Neuro: Denies numbness, tingling, weakness or focal weakness Skin: Denies rash Except as documented, all other systems reviewed and negative [facility] Past Medical History Medical History (Updated 02/07/21 @ 20:56 by Marko Magallon DO) COVID-19 Healthy female adult Surgical History Surgical History History of appendectomy History of cholecystectomy Family History Family History Father Lung cancer Continuous tobacco abuse Mother Diabetes mellitus Hypertension Social History Social History Smoking status: Never smoker Alcohol intake: current Drinks per week: 1 Substance use: never Substance use type: does not use Gender identity (if verbalized by the patient): Female Spiritual care concerns: No Exam Narrative: Exam Narrative: APPEARANCE: No acute distress, nontoxic, resting in bed EYES: EOMI HEENT: Normocephalic, atraumatic, OMM RESPIRATORY: Tachypneic, decreased breath sounds at the bilateral lung lee no rhonchi or rales CARDIOVASCULAR: Tachycardic and regular without murmurs rubs or gallops. ABDOMINAL: Soft, nontender, nondistended, no rebound or guarding MUSCULOSKELETAl: Moves all extremities. No clubbing, cyanosis or edema. NEURO: Awake and alert. Following commands, speech normal, no focal deficits SKIN:: Warm, dry. No rashes lesions or abrasions PSYCHIATRIC: Normal affect/mood, Course Course Emergency Course: Patient given breathing treatments states she does feel better but remains tachypneic and tachycardic will admit at this time With Dr. Renae presentation and work-up agrees with admission to [facility] Discussed with patient and family results of workup and diagnosis. Discussed need for admission. Patient and family understand and agree to current treatment plan Vital Signs Vital signs: Vital Signs Temperature 98.5 F 02/07/21 17:26 Pulse Rate 133 H 02/07/21 17:26 Respiratory Rate 14 02/07/21 17:26 Blood Pressure 118/70 02/07/21 17:26 Pulse Oximetry 95 02/07/21 17:26 Temperature 98.5 F 02/07/21 17:26 Pulse Rate 110 H 02/07/21 20:42 Respiratory Rate 34 H 02/07/21 20:42 Blood Pressure 134/94 H 02/07/21 19:46 Pulse Oximetry 95 02/07/21 19:46 Medical D
[2021-02-07 18:07] LABS: Basophils Absolute Auto 0.1 K/mm3 (0.0-0.1); Basophils Percent Auto 0.4 % (0.2-1.2); Eosinophils Absolute Auto 0.2 K/mm3 (0-0.3); Eosinophils Percent Auto 1.5 % (0-4.4); Hematocrit 39.2 % (37.0-47.0); Hemoglobin 12.9 g/dL (12.0-15.0); Immature Granulocyte Absolute 0.18 K/mm3 (0.00-0.031); Immature Granulocyte Percent A 1.2 % (0-0.5); Lymphocytes Absolute Auto 1.54 K/mm3 (0.9-3.2); Lymphocytes Percent Auto 10.3 % (18.3-44.2); Mean Corpuscular HGB Conc 32.9 g/dl (32-36); Mean Corpuscular Volume 97.3 fl (80-100); Mean Platelet Volume 9.6 fl (7.4-10.4); Monocytes Absolute Auto 1.2 K/mm3 (0.1-0.6); Neutrophils Absolute Auto 11.7 K/mm3 (1.3-6.7); Neutrophils Percent Auto 78.6 % (45.5-73.1); Platelet Count Result 406 k/mm3 (150-375); Red Blood Count 4.03 M/mm3 (4.2-5.4); White Blood Count 14.9 K/mm3 (4.5-10.0)
[2021-02-07 18:22] LABS: Albumin Level 3.7 g/dL (3.5-5.1); Alkaline Phosphatase 72 U/L (38-126); Anion Gap 7 mmol/L (8-16); Aspartate Amino Transferase 108 U/L (14-36); Bilirubin,Total 0.7 mg/dL (0.2-1.3); Blood Urea Nitrogen 18 mg/dL (7-17); Calcium 10.1 mg/dL (8.4-10.2); Carbon Dioxide 25 mmol/L (22-30); Chloride 106 mmol/L (98-107); Estimated CRCL calculation 94 ml/min; Estimated Glomerular Filt Rate > 60; Glucose 164 mg/dL (65-105); Potassium 4.2 mmol/L (3.4-5.0); Sodium 138 mmol/L (137-145)
[2021-02-07 18:28] LABS: Troponin I < 0.012 ng/mL (0.000-0.034)
[2021-02-07 18:34] LABS: Alanine Aminotransferase 62 U/L (4-35)
[2021-02-07 18:35] LABS: INR 0.8; Prothrombin Time 11.7 Seconds (11.1-14.7)
[2021-02-07 18:36] LABS: Partial Thromboplastin Time 21.3 SECONDS (22.3-36.8)
[2021-02-07 18:38] LABS: D Dimer 0.76 ug/mL (<0.48)
[2021-02-07 18:52] LABS: Estimated CRCL calculation 94 ml/min; Estimated Glomerular Filt Rate > 60
[2021-02-07 19:19] LABS: Alveolar/Arterial O2 Gradient 34.1 mmHg; Base Excess ABG 1.4 mEq/l (+/-2.0); Fractional Inspired Oxygen 21 %; HCO3 ABG 25.3 mEq/l (22.0-26.0); Oxygen Content ABG 16.6 %vol (16.0-22.0); Oxygen Saturation ABG 94.8 % (95.0-100.0); Oxyhemoglobin 92.9 % THb (90.0-100.0); PCO2 ABG 37.8 mmHg (35.0-45.0); PO2 ABG 70.4 mmHg (80.0-100.0); PO2 FiO2 Ratio Arterial Blood 3.35 %; Total Hemoglobin 12.7 g/dL (12.0-18.0); pH ABG 7.444 (7.350-7.450)
[2021-02-07 19:20] LABS: Device ROOM AIR; Modified Allen's Test Pass; Site Drawn RIGHT RADIAL
[2021-02-07] MEDS: SODIUM CHLORIDE 0.9% IV 1,000 ML 999 ML IV CONT (19:20)
[2021-02-07] MEDS: methylPREDNISolone SOD SUCC 125 MG VIAL IV PUSH (19:40)
[2021-02-07] MEDS: IPRATROPIUM BR 0.02% INH SOLN 0.5 MG/2.5 ML VIAL INHALATION (20:32)
--- NOTE | 2021-02-07 21:40 | ADMGEN ---
This patient, Aishwarya Banks, was admitted to Medical Room 345-01. Patient/family oriented to hospital policies and general routines including ID bracelet, bed and alarms, visiting hours, pain management, procedures, bathroom and other care routines, personal items, smoking policy, room service/diet, and visiting hours. Information on how to activate the Rapid Response Team has been discussed. Patient/Family are encouraged to report perceived risks to care and to ask questions if they do not understand what they are told or what they should do.
[2021-02-07] MEDS: SODIUM CHLORIDE 0.9% IV 1,000 ML 100 ML IV CONT (22:17)
--- NOTE | 2021-02-07 23:17 | PM.IMHP ---
H&P: HPI History of Present Illness Date/Time: 02/07/21 23:17 Chief Complaint: worsening shortness of breath+ Narrative: This is a pleasant 45-year-old Pakistani female who is known to previously be healthy and recently diagnosed with COVID-19 on January 16. Patient was admitted for COVID pneumonia and treated with steroids, Remdesivir, bronchodilators, and IV antibiotics before being discharged 1 week ago. The patient reports that over the past week she has had increase exertional shortness of breath. Today she presented to the hospital with worsening shortness of breath and tachycardia. She also complained of right lower extremity pain. She underwent a venous Doppler ultrasound of her right lower extremity which did not demonstrate any DVT. The patient was treated with IV fluids, bronchodilators, and steroids in the ER today. Despite this treatment the patient continued to have tachypnea and tachycardia. She denies any fevers, chills, chest pain, nausea, vomiting, abdominal pain, dysuria, hematuria, diarrhea, or rectal bleeding. The patient was admitted to the hospital for further care. On my encounter with the patient she has had significant nonproductive cough. Review of Systems Review of Systems: All systems reviewed & are unremarkable except as noted in HPI and below PMFSH Past Medical History Medical History COVID-19 Healthy female adult Surgical History Surgical History History of appendectomy History of cholecystectomy Family History Family History Father Continuous tobacco abuse Lung cancer Diabetes mellitus Hypertension Mother Diabetes mellitus Hypertension Social History Social History Smoking status: Never smoker Alcohol intake: current Drinks per week: 1 Substance use: never Substance use type: does not use Gender identity (if verbalized by the patient): Female Spiritual care concerns: No Meds Home Medications and Allergies Home Medications Medication Instructions Recorded Confirmed Type benzonatate 100 mg PO QID PRN 01/26/21 02/07/21 History ondansetron 4 mg BYMOUTH Q6-12H PRN 01/26/21 02/07/21 History albuterol sulfate 2 puff INHALATION Q4-6H #0 g 01/31/21 02/07/21 Rx cholecalciferol (vitamin D3) 1,000 units PO DAILY #30 tablet 01/31/21 02/07/21 Rx [Vitamin D3] aspirin 81 mg PO DAILY 02/07/21 02/07/21 History Allergies Allergy/AdvReac Type Severity Reaction Status Date / Time garlic Allergy Itching Verified 02/07/21 21:41 Vital Signs Vital Signs - 24 hr 02/07/21 17:26 02/07/21 17:51 02/07/21 18:25 Temperature 36.9 C Pulse Rate 133 H 124 H Respiratory Rate 14 36 H Blood Pressure 118/70 122/82 Pulse Oximetry 95 93 94 02/07/21 19:00 02/07/21 19:11 02/07/21 19:29 Temperature Pulse Rate 117 H 120 H 117 H Respiratory Rate 37 H 41 H 26 H Blood Pressure 122/85 116/79 Pulse Oximetry 94 94 02/07/21 19:33 02/07/21 19:41 02/07/21 19:46 Temperature Pulse Rate 115 H 121 H 116 H Respiratory Rate 21 H 34 H 37 H Blood Pressure 131/91 H 134/94 H Pulse Oximetry 96 95 02/07/21 20:01 02/07/21 20:16 02/07/21 20:17 Temperature Pulse Rate 113 H 111 H 110 H Respiratory Rate 31 H 38 H 34 H Blood Pressure 134/95 H 136/91 H Pulse Oximetry 96 95 02/07/21 20:31 02/07/21 20:42 02/07/21 20:46 Temperature Pulse Rate 110 H 110 H 121 H Respiratory Rate 31 H 34 H 35 H Blood Pressure 140/95 H 125/77 Pulse Oximetry 95 95 02/07/21 21:01 02/07/21 21:22 02/07/21 21:43 Temperature 36.6 C Pulse Rate 118 H 118 H 126 H Respiratory Rate 35 H 32 H 28 H Blood Pressure 141/90 H 127/79 149/96 H Pulse Oximetry 94 93 93 02/07/21 21:46 Temperature 36.6 C Pulse Rate 126 H Respiratory Rate 28 H Blood Pressure 149/
[2021-02-08] VITALS (16 sets, daily range): BP systolic 122–139; BP diastolic 73–82; PULSE 78–127; RESP 16–26; TEMP 36.1–36.4; O2SAT 90–96; BMI 25.0
[2021-02-08 00:53] LABS: Amphetamine Screen Urine Negative (Negative); Barbiturate Screen Urine Negative (Negative); Benzodiazepines Screen Urine Negative (Negative); Cannabinoid Screen Urine Negative (Negative); Cocaine Screen Urine Negative (Negative); Methadone Screen Urine Negative (Negative); Opiate Screen Urine Positive (Negative); Phencyclidine Screen Urine Negative (Negative)
[2021-02-08] MEDS: LEVALBUTEROL NEB 1.25 MG/3 ML 0.63 MG INHALATION ×4 (01:19→20:41)
[2021-02-08] MEDS: IPRATROPIUM BR 0.02% INH SOLN 0.5 MG/2.5 ML VIAL INHALATION ×4 (01:19→20:41)
[2021-02-08] MEDS: methylPREDNISolone SOD SUCC 125 MG VIAL 60 MG IV PUSH ×3 (04:38→21:24)
[2021-02-08 05:59] LABS: Basophils Percent Auto 0.1 % (0.2-1.2); Hematocrit 35.1 % (37.0-47.0); Hemoglobin 11.5 g/dL (12.0-15.0); Immature Granulocyte Absolute 0.14 K/mm3 (0.00-0.031); Lymphocytes Absolute Auto 0.64 K/mm3 (0.9-3.2); Lymphocytes Percent Auto 4.4 % (18.3-44.2); Mean Corpuscular HGB Conc 32.8 g/dl (32-36); Mean Corpuscular Hemoglobin 32.2 pg (26-34); Mean Corpuscular Volume 98.3 fl (80-100); Mean Platelet Volume 9.7 fl (7.4-10.4); Monocytes Absolute Auto 0.1 K/mm3 (0.1-0.6); Monocytes Percent Auto 0.8 % (2.6-8.5); Neutrophils Absolute Auto 13.6 K/mm3 (1.3-6.7); Neutrophils Percent Auto 93.7 % (45.5-73.1); Platelet Count Result 351 k/mm3 (150-375); Red Blood Count 3.57 M/mm3 (4.2-5.4); Red Cell Distribution Width 14.1 % (11.5-14.5); White Blood Count 14.5 K/mm3 (4.5-10.0)
[2021-02-08 06:06] LABS: Albumin Level 3.3 g/dL (3.5-5.1); Alkaline Phosphatase 77 U/L (38-126); Anion Gap 11 mmol/L (8-16); Aspartate Amino Transferase 113 U/L (14-36); Bilirubin,Total 0.7 mg/dL (0.2-1.3); Blood Urea Nitrogen 17 mg/dL (7-17); Calcium 8.4 mg/dL (8.4-10.2); Carbon Dioxide 20 mmol/L (22-30); Chloride 111 mmol/L (98-107); Estimated CRCL calculation 94 ml/min; Estimated Glomerular Filt Rate > 60; Glucose 223 mg/dL (65-105); Potassium 3.8 mmol/L (3.4-5.0); Sodium 142 mmol/L (137-145)
[2021-02-08 06:28] LABS: Alanine Aminotransferase 67 U/L (4-35)
--- NOTE | 2021-02-08 08:00 | PM.IMPN ---
Progress Note: A&P Additional Plan 02/07/22 pt admitted w worsening SOB one week after dc from [facility] for COVID PNA, DVT/PE ruled out, pt tachycardia and tachypneic 02/08/22 PE and DVT ruled out; imaging shows resolving PNA, unclear why pt w acute worsening SOB, incentive spirometery, duonebs and cough suppressant ordered , BB x tachycardia, supplemental O2 PRN, utox + for opiates review of history patient was taking codeine with guaifenesin she has the empty bottle with her. Continue current care. 6 minutes walk test Time Spent With Patient Time with patient: 25 - 35 minutes Subjective Date/time seen: 02/08/21 08:00 patient sitting up side of bed eating breakfast without any oxygen. She appears comfortable on room air but is noted to have some dyspnea with speaking and cough. Patient reassured that her workup so far is negative and her pneumonia appears to be resolving on imaging. We discussed current plan of care and I request that she walk with a 6 minutes walk test later today. Patient is in agreement. Exam Narrative: Exam Narrative: GEN: NAD, AAOx3, cooperative HEENT: NCAT, MMM, EOMI Neck: no JVD Heart: S1S2 tachy with regular rhythm Lungs: CTA B/l Abd: soft, NT, ND, bowel sounds normoactive Ext: moves all, no cyanosis, no clubbing, no edema Neuro: no focal neurological deficits appreciated, cranial nerves intact, sensory not evaluated Psych: mood and affect congruent patient is anxious about her health Objective Data Vital Signs Vital Signs: Vital Signs - 24 hr 02/07/21 17:26 02/07/21 17:51 02/07/21 18:25 Temperature 98.5 F Pulse Rate 133 H 124 H Respiratory Rate 14 36 H Blood Pressure 118/70 122/82 Pulse Oximetry 95 93 94 02/07/21 19:00 02/07/21 19:11 02/07/21 19:29 Temperature Pulse Rate 117 H 120 H 117 H Respiratory Rate 37 H 41 H 26 H Blood Pressure 122/85 116/79 Pulse Oximetry 94 94 02/07/21 19:33 02/07/21 19:41 02/07/21 19:46 Temperature Pulse Rate 115 H 121 H 116 H Respiratory Rate 21 H 34 H 37 H Blood Pressure 131/91 H 134/94 H Pulse Oximetry 96 95 02/07/21 20:01 02/07/21 20:16 02/07/21 20:17 Temperature Pulse Rate 113 H 111 H 110 H Respiratory Rate 31 H 38 H 34 H Blood Pressure 134/95 H 136/91 H Pulse Oximetry 96 95 02/07/21 20:31 02/07/21 20:42 02/07/21 20:46 Temperature Pulse Rate 110 H 110 H 121 H Respiratory Rate 31 H 34 H 35 H Blood Pressure 140/95 H 125/77 Pulse Oximetry 95 95 02/07/21 21:01 02/07/21 21:22 02/07/21 21:43 Temperature 98 F Pulse Rate 118 H 118 H 126 H Respiratory Rate 35 H 32 H 28 H Blood Pressure 141/90 H 127/79 149/96 H Pulse Oximetry 94 93 93 02/07/21 21:46 02/08/21 01:20 02/08/21 01:29 Temperature 98 F Pulse Rate 126 H 112 H 115 H Respiratory Rate 28 H 20 22 H Blood Pressure 149/96 H Pulse Oximetry 02/08/21 04:33 Temperature 97 F L Pulse Rate 109 H Respiratory Rate 26 H Blood Pressure 122/73 Pulse Oximetry 94 Intake/Output Intake/Output: Intake & Output 02/05/21 02/06/21 02/07/21 02/08/21 23:59 23:59 23:59 23:59 Intake Total 1000 200 Output Total 400 Balance 1000 -200 Meds/Results Medications: Active Medications Generic Name Dose Route Start Last Admin Trade Name Freq PRN Reason Stop Dose Admin Aspirin 81 mg 02/08/21 09:00 Aspirin 81 Mg Enteric Tablet PO DAILY SUNI Benzonatate 100 mg 02/07/21 23:16 Benzonatate 100 Mg Capsule PO QID PRN Cough Enoxaparin Sodium 40 mg 02/08/21 09:00 Enoxaparin 40 Mg/0.4 Ml Syringe SUB-Q DAILY SUNI Guaifenesin/Dextromethorphan 5 ml 02/07/21 23:15 02/08/21 00:00 Guaifenesin/Dextromethorphan 10 Ml Udc PO 5 ml Q4H PRN Administration Cough Sodium Chloride 1,000 mls @ 100 mls/hr 02/07/21 20:45 02/07/21 22:17 Normal Saline Iv IV CONT 100 mls/hr .Q10H SUNI Administration Ipratropium [place] 0.5 mg 02/08/21 02:00 02/08/21 01:19 Ipratropium Br 0.02% Inh So
[2021-02-08] MEDS: SODIUM CHLORIDE 0.9% IV 1,000 ML 100 ML IV CONT ×2 (09:12→21:26)
[2021-02-08] MEDS: ENOXAPARIN 40 MG/0.4 ML SYRINGE SUB-Q (09:13)
[2021-02-08] MEDS: guaiFENesin/DEXTROMETHORPHAN 10 ML UDC 5 ML PO ×2 (09:14)
[2021-02-08] MEDS: ASPIRIN 81 MG ENTERIC TABLET PO (09:15)
[2021-02-08] MEDS: CHOLECALCIFEROL 1,000 UNITS TABLET 1000 UNITS PO (09:15)
[2021-02-08] MEDS: BENZONATATE 100 MG CAPSULE PO (09:15)
--- NOTE | 2021-02-08 12:11 | PCNSR ---
On 02/08/21, the student, Radha Hilton, provided care and completed [facility] documentation on this patient. I have reviewed the student's documentation and agree with the findings.
--- NOTE | 2021-02-08 14:32 | PCRCNOTE ---
Home O2 Eval completed. No home O2 needed at this time. RN notified. SPoke to RN in regards to the order for 6 minute walk. Hospitalist has in an order for 6 minute walk, but we do not do 6MWT in house, only as a outpatient procedure, home O2 eval was done in its place. She said she will to relay to Dr Cisse and ask for a home O2 eval order.
[2021-02-08] MEDS: METOPROLOL TARTRATE INJ 5 MG/5 ML VIAL 2.5 MG IV PUSH (15:12)
[2021-02-09] VITALS (16 sets, daily range): BP systolic 128–142; BP diastolic 73–84; PULSE 74–113; RESP 16–18; TEMP 36–36.6; O2SAT 93–98
[2021-02-09] MEDS: IPRATROPIUM BR 0.02% INH SOLN 0.5 MG/2.5 ML VIAL INHALATION ×3 (03:15→13:32)
[2021-02-09] MEDS: LEVALBUTEROL NEB 1.25 MG/3 ML 0.63 MG INHALATION ×3 (03:15→13:32)
[2021-02-09 05:56] LABS: Albumin Level 2.9 g/dL (3.5-5.1); Alkaline Phosphatase 62 U/L (38-126); Anion Gap 7 mmol/L (8-16); Aspartate Amino Transferase 74 U/L (14-36); Bilirubin,Total 0.5 mg/dL (0.2-1.3); Blood Urea Nitrogen 17 mg/dL (7-17); Calcium 8.5 mg/dL (8.4-10.2); Carbon Dioxide 20 mmol/L (22-30); Chloride 112 mmol/L (98-107); Estimated CRCL calculation 114 ml/min; Estimated Glomerular Filt Rate > 60; Glucose 168 mg/dL (65-105); Magnesium 2.1 mg/dL (1.6-2.3); Potassium 3.7 mmol/L (3.4-5.0); Sodium 139 mmol/L (137-145)
[2021-02-09 06:00] LABS: Alanine Aminotransferase 68 U/L (4-35)
[2021-02-09] MEDS: methylPREDNISolone SOD SUCC 125 MG VIAL 60 MG IV PUSH ×2 (06:01→14:08)
[2021-02-09] MEDS: CHOLECALCIFEROL 1,000 UNITS TABLET 1000 UNITS PO (08:57)
[2021-02-09] MEDS: ENOXAPARIN 40 MG/0.4 ML SYRINGE SUB-Q (08:57)
[2021-02-09] MEDS: METOPROLOL TARTRATE 12.5 MG TABLET PO ×2 (08:57→14:07)
[2021-02-09] MEDS: ASPIRIN 81 MG ENTERIC TABLET PO (08:57)
--- NOTE | 2021-02-09 16:32 | PM.DS ---
DS: Admitting Diagnosis Admitting Diagnosis Admitting Diagnosis: 1) Dyspnea: (2) Sinus tachycardia: (3) Leukocytosis: (4) Thrombocytosis: (5) Abnormal glucose: DS: Discharge Diagnosis Discharge Diagnosis (1) Inappropriate sinus tachycardia: Code(s): R00.0 - Tachycardia, unspecified Status: Acute Assessment and Plan: Resolved with metoprolol 25 b.i.d. (2) Pre-diabetes: Code(s): R73.03 - Prediabetes Status: Acute Assessment and Plan: likely due to prolonged use steroids during COVID illness and ongoing post discharge. Will defer initiation of metformin to PCP if hemoglobin A1c remains elevated after repeat labs. (3) Thrombocytosis: Code(s): D47.3 - Essential (hemorrhagic) thrombocythemia Status: Chronic Assessment and Plan: secondary to recent viral infection inflammatory markers (4) Leukocytosis: Qualifiers: Leukocytosis type: unspecified Qualified Code(s): D72.829 - Elevated white blood cell count, unspecified Code(s): D72.829 - Elevated white blood cell count, unspecified Status: Acute Assessment and Plan: steroid induced (5) Dyspnea on minimal exertion: Code(s): R06.00 - Dyspnea, unspecified Status: Acute Assessment and Plan: resolved with improved heart rate with metoprolol, DVT/PE have been ruled out DS: Summary Hospital Course Reason for hospitalization: Shortness of breath Hospital Course: 45-year-old female recently discharged after treatment for Coronavirus 19 returns to the hospital with complaint of shortness of breath. She is not found to be Hypoxic/oxygen dependent but does have inappropriate symptomatic sinus tachycardia. patient is started on metoprolol with improved heart rate to the 70s at rest and low 90s with exertion and her respiratory symptoms and subsequent anxiety have dissipated. Her blood pressure has remained 140s with treatment and she is tolerating metoprolol 25 mg p.o. b.i.d. very well. Elevated blood pressure is believed to be associated with use of steroids. She is given hydroxyzine for anxiety and a Medrol Dosepak to wean from steroids after discharge. Additionally, she has been given indications to monitor her blood pressure and hold her metoprolol if her Systolic blood pressure is less than 110. a 30 day supply of beta-sam has been provided to the patient in this post viral period. She is advised to follow-up with her primary care physician after completion of treatment. If she continues to have inappropriate sinus tachycardia, I recommend for her to follow-up with the environmental conservation officer. Status at Discharge Functional status at discharge: independent ambulation Overall status at discharge: patient is back to baseline Time Spent with Patient Time attestation: Total time spent providing and/or coordinating discharge services: Time spent: Greater than 30 minutes Exam Narrative: Exam Narrative: GEN: NAD, AAOx3, cooperative HEENT: NCAT, MMM, EOMI Neck: no JVD Heart: S1S2 regular rhythm Lungs: CTA B/l Abd: soft, NT, ND, bowel sounds normoactive Ext: moves all, no cyanosis, no clubbing, no edema Neuro: no focal neurological deficits appreciated, cranial nerves intact, sensory not evaluated Psych: mood and affect congruent DS: Data Data Completed and Pending Labs on day of discharge: Labs from last 24 hours 02/09/21 05:23 Sodium 139 Potassium 3.7 Chloride 112 H Carbon Dioxide 20 L Anion Gap 7 L BUN 17 Creatinine 0.40 L Estim Creat Clear Calc 114 Estimated GFR > 60 Glucose 168 H Calcium 8.5 Magnesium 2.1 Total Bilirubin 0.5 AST 74 H ALT 68 H Alkaline Phosphatase 62 Total Protein 6.0 L Albumin 2.9 L Discharge Plan Discharge Attending physician on discharge: Tracie Cisse Discharging Clinician: Tracie Cisse Anticipated Discharge Date/Time: 02/09/21 16:27 Patient Disposition: Home, Self-Care Acti
== END 2021-02-09 17:30 | disposition home or self-care (01) | DRG 309 ==
LOC: ANHED 20:56 → ANH3MED 21:33
PROVIDERS: Admitting Provider Family Medicine; Emergency Provider Emergency Medicine; PCP Family Medicine; Visit Provider Hospitalist
DX: R00.0 Tachycardia, unspecified (principal); J98.11 Atelectasis; B94.8 Sequelae of other specified infectious and parasitic diseases; R73.03 Prediabetes; D47.3 Essential (hemorrhagic) thrombocythemia; D72.829 Elevated white blood cell count, unspecified; F41.9 Anxiety disorder, unspecified; Z90.49 Acquired absence of other specified parts of digestive tract
CPT/HCPCS: 36415; 36600; 71045; 71275; 80053; 80307; 82805; 83036; 83735; 84484; 85025; 85380; 85610; 85730; 93005; 93971; 94618; 94640; 94667; 96361; 96372; 96374; 99285; A9270; G0378; J1650; J2930; J7030; Q9967